=== PATIENT | male | born 1970 ===

== ENCOUNTER 2021-10-30 12:49 | Inpatient (IN) | payer OTHER ==
[2021-10-31 07:54] LABS: Basophils % (Auto) 0.7 % (0.0-1.8); Eosinophils # (Auto) 0.2 K/mm3 (0.0-0.4); Eosinophils % (Auto) 2.9 % (0.0-4.3); Hematocrit 35.2 % (35.5-45.6); Hemoglobin 11.2 gm/dl (11.8-15.2); Lymphocytes # (Auto) 1.5 K/mm3 (1.2-5.4); Lymphocytes % (Auto) 27.6 % (13.4-35.0); Mean Corpuscular HGB Conc 32 % (32-34); Mean Corpuscular Volume 76 fl (84-94); Monocytes # (Auto) 0.4 K/mm3 (0.0-0.8); Monocytes % (Auto) 7.2 % (0.0-7.3); Platelet Count 212 K/mm3 (140-440); Red Blood Count 4.66 M/mm3 (3.65-5.03)
[2021-10-31 08:15] LABS: Alanine Aminotransferase 20 units/L (7-56); Albumin 3.6 g/dL (3.9-5); BUN/Creatinine Ratio 11; Blood Urea Nitrogen 9 mg/dL (9-20); Calcium 8.9 mg/dL (8.4-10.2); Chol/HDL Ratio 2.56 %; HDL Cholesterol 51 mg/dL (40-59); Hemolysis Index 0; LDL Cholesterol,Direct 63 mg/dL (50-130)
--- NOTE | 2021-10-31 08:27 | History and Physical Report ---
GP History & Physical - History of Present Illness Date of admission: 10/30/21 Date of Examination: 10/31/21 Reason for Admission: Danger to self, Danger to others, Failure of Outpatient Treatment Chief Complaint: Psychosis History of Present Illness: The patient is a 51 year old male with history of schizophrenia and bipolar who was admitted for aggressive behavior. The patient was seen this morning. He is verbally aggressive; he is oriented x3. The patient states that he ran out of his medications. The patient requesting for pain medication and Ativan; the patient seems to be med seeking. He reports seeing his psychiatrist monthly. He denies suicidal ideation but states " I feel like shit, I need my medications." He denies hallucinations. PAST PSYCHIATRIC HISTORY Diagnoses: Bipolar, Schizophrenia Suicide attempts or Self-harm behavior: Denies Prior psychiatric hospitalizations: Yes Substance Abuse history: marijuana Previous psychiatric medications tried: Unable to recall Outpatient treatment: Yes PAST MEDICAL HISTORY: Chronic pain, Arthritis, HTN, DDD, gastric bypass, DJD of the neck, hip surgery Family Psychiatric History: None reported or documented SOCIAL HISTORY Marital Status: Single Living Arrangements: Lives with father and brother Employment Status: Disability Access to guns/weapons: Denies Education: 12th grade History of Abuse: Denies Legal History: Denies REVIEW OF SYSTEMS Constitutional: Negative for weight loss ENT: Negative for stridor Respiratory: Negative for cough or hemoptysis All other systems reviewed and are negative MENTAL STATUS EXAMINATION General Appearance and Behavior: Age appropriate, good hygiene, wearing appropriate clothes, fair eye contact, calm, cooperative and polite Cooperation: Cooperative Psychomotor Behavior: Psychomotor normal Mood: agitated Affect and affective range: congruent with stated mood Thought Process: Goal directed Thought Content: Reality oriented Speech: normal tone and pace Suicidal Ideation: Denies Homicidal Ideation: Denies Hallucinations: Denies Delusions: None elicited Impulse Control: Limited Insight and Judgment: Limited insight and judgment Memory: Limited Attention: attentive Orientation: Alert, oriented Assessment and Plan Bipolar Disorder Treatment Plan Patient admitted for inpatient psychiatric evaluation, medication adjustment and close monitoring The patient's behavior, mood, sleep and appetite will be closely monitored. Patient enrolled in individual and group therapeutic sessions and encouraged to attend. Patient provided with a safe and structured environment. Patient's physical health needs will be addressed by the Hospitalist. Hospitalist Consulted Labs including CBC, CMP, Lipid profile and Hemoglobin A1C levels ordered for baseline reference Social Assessment will be completed and the Deputy Director Of Public Works will work with patient and family to ensure a suitable and safe disposition Medication adjustment will be made as clinically indicated Continue home meds Usual Wellness Caodaism/Preservation: - Start Trazodone 50 mg po QHS & 50 mg po QHS PRN between 10 PM & 2 AM for insomnia - Start Melatonin 5 mg po QHS to promote circadian rhythm The patient agreed on the treatment plan, understood the risk, benefit, alternative treatment, potential consequence of no treatment, and gave informed consent. Estimated days: 7 Post hospital care: primary care provider, psychiatric provider Case staffed with Dr. Cruz Legal Status: Voluntary Reaction to Hospitalization: Accepting Medications and Allergies Legal Status: Voluntary Medications and Allergies Allergies Allergy/AdvReac Type Severity Reaction Status Date / Time Penicillins Allergy Unknown Verified 10/30/21 13:59 Home Medications Medication Instructions Recorded Confirmed Last Taken Type Gabapentin 100 mg PO TID 10/31/21 10/31/21 Unknown History Mirtazapine [Remeron] 45 mg PO HS 10/31/21 10/31/21 Unknown History OLANZapine [Zyprexa] 20 mg PO HS 10/31/21 10/31/21 Unknown History Pantoprazole [Protonix TAB] 40 mg PO DAILY 10/31/21 10/31/21 Unknown History busPIRone [Buspar] 10 mg PO TID 10/31/21 10/31/21 Unknown History hydrOXYzine PAMOATE [Vistaril] 25 mg PO BID PRN 10/31/21 10/31/21 Unknown History hydroCHLOROthiazide [HCTZ] 12.5 mg PO DAILY 10/31/21 10/31/21 Unknown History lamoTRIgine [Lamictal] 50 mg PO DAILY 10/31/21 10/31/21 Unknown History Results - Results Labs/Vitals: Laboratory Last Values WBC 5.3 K/mm3 (4.5-11.0) 10/31/21 07:26 RBC 4.66 M/mm3 (3.65-5.03) 10/31/21 07:26 Hgb 11.2 gm/dl (11.8-15.2) L 10/31/21 07:26 Hct 35.2 % (35.5-45.6) L 10/31/21 07:26 MCV 76 fl (84-94) L 10/31/21 07:26 MCH 24 pg (28-32) L 10/31/21 07:26 MCHC 32 % (32-34) 10/31/21 07:26 RDW 18.0 % (13.2-15.2) H 10/31/21 07:26 Plt Count 212 K/mm3 (140-440) 10/31/21 07:26 Lymph % (Auto) 27.6 % (13.4-35.0) 10/31/21 07:26 [place] % (Auto) 7.2 % (0.0-7.3) 10/31/21 07:26 Eos % (Auto) 2.9 % (0.0-4.3) 10/31/21 07:26 Baso % (Auto) 0.7 % (0.0-1.8) 10/31/21 07:26 Lymph # (Auto) 1.5 K/mm3 (1.2-5.4) 10/31/21 07:26 [place] # (Auto) 0.4 K/mm3 (0.0-0.8) 10/31/21 07:26 Eos # (Auto) 0.2 K/mm3 (0.0-0.4) 10/31/21 07:26 Baso # (Auto) 0.0 K/mm3 (0.0-0.1) 10/31/21 07:26 Seg Neutrophils % 61.6 % (40.0-70.0) 10/31/21 07:26 Seg Neutrophils # 3.2 K/mm3 (1.8-7.7) 10/31/21 07:26 Sodium 139 mmol/L (137-145) 10/31/21 07:26 Potassium 4.1 mmol/L (3.6-5.0) 10/31/21 07:26 Chloride 103.9 mmol/L (98-107) 10/31/21 07:26 Carbon Dioxide 26 mmol/L (22-30) 10/31/21 07:26 Anion Gap 13 mmol/L 10/31/21 07:26 BUN 9 mg/dL (9-20) 10/31/21 07:26 Creatinine 0.8 mg/dL (0.8-1.3) 10/31/21 07:26 Estimated GFR > 60 ml/min 10/31/21 07:26 BUN/Creatinine Ratio 11 % 10/31/21 07:26 Glucose 91 mg/dL (75-100) 10/31/21 07:26 Hemoglobin A1c 6.4 % (4-6) H 10/31/21 07:26 Calcium 8.9 mg/dL (8.4-10.2) 10/31/21 07:26 Total Bilirubin 0.40 mg/dL (0.1-1.2) 10/31/21 07:26 AST 36 units/L (5-40) 10/31/21 07:26 ALT 20 units/L (7-56) 10/31/21 07:26 Alkaline Phosphatase 93 units/L (35-129) 10/31/21 07:26 Total Protein 6.8 g/dL (6.3-8.2) 10/31/21 07:26 Albumin 3.6 g/dL (3.9-5) L 10/31/21 07:26 Albumin/Globulin Ratio 1.1 % 10/31/21 07:26 Triglycerides 100 mg/dL (2-149) 10/31/21 07:26 Cholesterol 131 mg/dL (50-199) 10/31/21 07:26 LDL Cholesterol Direct 63 mg/dL (50-130) 10/31/21 07:26 HDL Cholesterol 51 mg/dL (40-59) 10/31/21 07:26 Cholesterol/HDL Ratio 2.56 % 10/31/21 07:26 TSH 1.510 mlU/mL (0.270-4.200) 10/31/21 07:26 Last Vital Signs Temp 98.3 F 10/30/21 22:00 Pulse 82 10/30/21 22:00 Resp 18 10/30/21 22:00 BP 129/85 10/30/21 22:00 Pulse Ox 95 10/30/21 22:00 Physical Examination - Constitutional Vitals: Vital Signs Temp Pulse Resp BP Pulse Ox 98.3 F 82 18 129/85 95 10/30/21 22:00 10/30/21 22:00 10/30/21 22:00 10/30/21 22:00 10/30/21 22:00 Temperature -Last 24 Hours Temperature 98.3 F Mental Status Exam - Vital signs Last Vital Signs Temp 98.3 F 10/30/21 22:00 Pulse 82 10/30/21 22:00 Resp 18 10/30/21 22:00 BP 129/85 10/30/21 22:00 Pulse Ox 95 10/30/21 22:00 Physician Certification - Certification Statement Physician Certification Statement: This is an acknowledgement statement that AZEB SULTANA JR. is a 51 year old M who requires inpatient psychiatric admission for treatment which could reasonably be expected to improve the patient's condition for Estimated period of time patient will need to remain in the hospital: [ ] Plan for post-hospital care: [ ]
[2021-10-31] MEDS: lamoTRIgine 25 MG TAB PO SCH (09:28)
[2021-10-31] MEDS: hydroCHLOROthiazide 12.5 MG CAP PO SCH (09:28)
[2021-10-31] MEDS: hydrOXYzine PAMOATE 25 MG CAP PO PRN ×2 (09:29→21:48)
[2021-10-31] MEDS: GABAPENTIN 100 MG CAP PO SCH ×3 (09:29→21:48)
[2021-10-31] MEDS: PANTOPRAZOLE 40 MG TAB PO SCH (09:29)
[2021-10-31] MEDS: busPIRone 10 MG TAB PO SCH ×2 (14:32→21:50)
--- NOTE | 2021-10-31 16:25 | Consultation ---
<ALONDRA CHAVEZ - Last Filed: 11/01/21 09:03> Medications and Allergies Allergies Allergy/AdvReac Type Severity Reaction Status Date / Time Penicillins Allergy Unknown Verified 10/30/21 13:59 Home Medications Medication Instructions Recorded Confirmed Last Taken Type Gabapentin 100 mg PO TID 10/31/21 10/31/21 Unknown History Mirtazapine [Remeron] 45 mg PO 10/31/21 10/31/21 Unknown History OLANZapine [Zyprexa] 20 mg PO 10/31/21 10/31/21 Unknown History Pantoprazole [Protonix TAB] 40 mg PO DAILY 10/31/21 10/31/21 Unknown History busPIRone [Buspar] 10 mg PO TID 10/31/21 10/31/21 Unknown History hydrOXYzine PAMOATE [Vistaril] 25 mg PO BID PRN 10/31/21 10/31/21 Unknown History hydroCHLOROthiazide [HCTZ] 12.5 mg PO DAILY 10/31/21 10/31/21 Unknown History lamoTRIgine [Lamictal] 50 mg PO DAILY 10/31/21 10/31/21 Unknown History Active Meds: Active Medications Acetaminophen (Acetaminophen 325 Mg Tab) 650 mg PO Q6H PRN PRN Reason: Pain, Mild (1-3) Last Admin: 10/31/21 23:26 Dose: 650 mg Buspirone HCl (Buspirone 10 Mg Tab) 10 mg PO TID [facility] Last Admin: 10/31/21 21:50 Dose: 10 mg Gabapentin (Gabapentin 100 Mg Cap) 100 mg PO TID [facility] Last Admin: 10/31/21 21:48 Dose: 100 mg Hydrochlorothiazide (Hydrochlorothiazide 12.5 Mg Cap) 12.5 mg PO DAILY [facility] Last Admin: 10/31/21 09:28 Dose: Not Given Hydroxyzine Pamoate (Hydroxyzine Pamoate 25 Mg Cap) 25 mg PO BID PRN PRN Reason: Anxiety Last Admin: 10/31/21 21:48 Dose: 25 mg Lamotrigine (Lamotrigine 25 Mg Tab) 50 mg PO DAILY [facility] Last Admin: 10/31/21 09:28 Dose: 50 mg Mirtazapine (Mirtazapine 15 Mg Tab) 45 mg PO [facility] Last Admin: 05/14/22 21:50 Dose: 45 mg Olanzapine (Olanzapine 10 Mg Tab) 20 mg PO QHS [facility] Last Admin: 10/31/21 21:49 Dose: 20 mg Pantoprazole Sodium (Pantoprazole 40 Mg Tab) 40 mg PO DAILY [facility] Last Admin: 10/31/21 09:29 Dose: 40 mg Exam - Constitutional Vitals: Temp Pulse Resp BP Pulse Ox 97.6 F 75 18 125/81 100 11/01/21 04:17 11/01/21 04:17 11/01/21 04:17 11/01/21 04:17 11/01/21 04:17 Results - Labs CBC & Chem 7: 10/31/21 07:26 10/31/21 07:26 <EVETTE ARTHUR - Last Filed: 11/01/21 20:04> History of Present Illness - Reason for Consult Consult date: 10/30/21 Medical management Requesting physician: JESSE RAZA - History of Present Illness 51 YO Male with HTN, OA, Schizophrenia, Bipolar Disorder admitted to [facility] for psychiatric stabilization. Consult placed by Dr. Raza for medical management. Patient seen and evaluated in the patient room. Pt denies fever, c hills, chest pain, palpitation, productive cough, skin rash, recent contact, known exposure to COVID-19. Patient resting comfortably. No reported nursing events. Patient denies. Past History Past Medical History: arthritis, hypertension Past Surgical History: total hip replacement, bowel surgery Social history: single. denies: smoking, alcohol abuse, prescription drug abuse Family history: hypertension Medications and Allergies Active Meds: Active Medications Buspirone HCl (Buspirone 10 Mg Tab) 10 mg PO TID [facility] Last Admin: 10/31/21 14:32 Dose: Not Given Gabapentin (Gabapentin 100 Mg Cap) 100 mg PO TID [facility] Last Admin: 10/31/21 13:05 Dose: 100 mg Hydrochlorothiazide (Hydrochlorothiazide 12.5 Mg Cap) 12.5 mg PO DAILY [facility] Last Admin: 10/31/21 09:28 Dose: Not Given Hydroxyzine Pamoate (Hydroxyzine Pamoate 25 Mg Cap) 25 mg PO BID PRN PRN Reason: Anxiety Last Admin: 10/31/21 09:29 Dose: 25 mg Lamotrigine (Lamotrigine 25 Mg Tab) 50 mg PO DAILY [facility] Last Admin: 10/31/21 09:28 Dose: 50 mg Mirtazapine (Mirtazapine 15 Mg Tab) 45 mg PO HS [facility] Olanzapine (Olanzapine 10 Mg Tab) 20 mg PO QHS [facility] Pantoprazole Sodium (Pantoprazole 40 Mg Tab) 40 mg PO DAILY [facility] Last Admin: 10/31/21 09:29 Dose: 40 mg Review of Systems Constitutional: no weight loss, no weight gain, no fever, no night sweats Ears, nose, mouth and throat: no ear pain, no tinnitis, no nose pain, no nasal congestion, no nasal discharge Cardiovascular: no chest pain, no orthopnea, no edema, no syncope Respiratory: no cough, no hemoptysis, no shortness of breath Gastrointestinal: no abdominal pain, no nausea, no vomiting, no diarrhea, no constipation Genitourinary Male: no dysuria, no hematuria, no discharge, no urinary frequency, no urinary hesitancy, no nocturia, no incontinence Rectal: no pain, no incontinence, no bleeding Musculoskeletal: no neck stiffness, no shooting arm pain, no arm numbness/tingling, no shooting leg pain, no leg numbness/tingling Integumentary: no rash, no pruritis, no redness, no sores, no wounds Neurological: no head injury, no paralysis, no weakness, no parathesias, no tingling, no seizures, no syncope, no tremors Psychiatric: anxiety, irritability, sadness/tearfullness Endocrine: no cold intolerance, no heat intolerance, no polyphagia, no polydipsia, no polyuria, no nocturia Hematologic/Lymphatic: no easy bruising, no easy bleeding Allergic/Immunologic: no urticaria, no allergic rhinitis, no persistent infections Exam - Constitutional Vitals: Temp Pulse Resp BP Pulse Ox 98.2 F 97 H 18 108/72 96 10/31/21 09:20 10/31/21 09:20 10/31/21 09:20 10/31/21 09:20 10/31/21 09:20 General appearance: Present: no acute distress, well-nourished - EENT Eyes: Present: PERRL ENT: hearing intact, clear oral mucosa - Neck Neck: Present: supple, normal ROM - Respiratory Respiratory effort: normal Respiratory: bilateral: CTA - Cardiovascular Heart Sounds: Present: S1 & S2. Absent: rub, click - Extremities Extremities: pulses symmetrical, No edema Peripheral Pulses: within normal limits - Abdominal General gastrointestinal: Present: soft, non-tender, non-distended, normal bowel sounds Male genitourinary: Present: normal - Integumentary Integumentary: Present: clear, warm, dry - Musculoskeletal Musculoskeletal: gait normal, strength equal bilaterally - Psychiatric Psychiatric: no appropriate mood/affect, no intact judgment & insight, agitated - Neurologic Neurologic: CNII-XII intact, moves all extremities Results - Labs CBC & Chem 7: 10/31/21 07:26 10/31/21 07:26 Labs: Abnormal lab results 10/31/21 10/31/21 10/31/21 Range/Units 07:26 07: 07:26 Hgb 11.2 L (11.8-15.2) gm/dl Hct 35.2 L (35.5-45.6) % MCV 76 L (84-94) fl MCH 24 L (28-32) pg RDW 18.0 H (13.2-15.2) % Hemoglobin A1c 6.4 H (4-6) % Albumin 3.6 L (3.9-5) g/dL Assessment and Plan - Patient Problems (1) Hypertension Current Visit: Yes Status: Acute Qualifiers: Hypertension type: primary hypertension Qualified Code(s): I10 - Essential (primary) hypertension Plan to address problem: Monitor blood pressure every shift, continue medical management. (2) Osteoarthritis Current Visit: Yes Status: Acute Plan to address problem: Pain control as clinically indicated, supportive care. (3) Schizophrenia Current Visit: Yes Status: Acute Qualifiers: Schizophrenia type: unspecified Qualified Code(s): F20.9 - Schizophrenia, unspecified Plan to address problem: Continue medical management, supportive care, behavior change counseling, cognitive behavioral therapy. (4) Bipolar disorder Current Visit: Yes Status: Acute Qualifiers: Current episode severity: unspecified Plan to address problem: Continue medical management, supportive care. (5) Advance care planning Current Visit: Yes Status: Acute Plan to address problem: Disease education conducted, care plan discussed, diagnoses discussed, prognosis discussed, patient is full code. Patient knowledges understanding and agreement with care plan, +30 minutes.
[2021-10-31] MEDS: ACETAMINOPHEN 325 MG TAB PO PRN ×2 (16:30→23:26)
[2021-10-31] MEDS: MIRTAZAPINE 15 MG TAB PO SCH (21:50)
[2021-10-31] MEDS ORDERED: NON-FORMULARY EACH (Olanzapine [Zyprexa] 20 MG Tablet) PO SCH (22:00)
--- NOTE | 2021-11-01 09:25 | Progress Note ---
Subjective Date of service: 11/01/21 Subjective Comment: 11/01: The patient was seen today.He reports doing well. The patient presents with appropriate affect, he denies depression. He denies any current suicidal/homicidal ideation and denies hallucinations. No changes made today. REVIEW OF SYSTEMS Constitutional: Negative for weight loss ENT: Negative for stridor Respiratory: Negative for cough or hemoptysis All other systems reviewed and are negative MENTAL STATUS EXAMINATION General Appearance and Behavior: Age appropriate, good hygiene, wearing appropriate clothes, fair eye contact, calm, cooperative and polite Cooperation: Cooperative Psychomotor Behavior: Psychomotor normal Mood: "Ok" Affect and affective range: congruent with stated mood Thought Process: Goal directed Thought Content: Reality oriented Speech: normal tone and pace Suicidal Ideation: Denies Homicidal Ideation: Denies Hallucinations: Denies Delusions: None elicited Impulse Control: Limited Insight and Judgment: Limited insight and judgment Memory: Limited Attention: attentive Orientation: Alert, oriented Assessment and Plan Bipolar Disorder Treatment Plan Patient admitted for inpatient psychiatric evaluation, medication adjustment and close monitoring The patient's behavior, mood, sleep and appetite will be closely monitored. Patient enrolled in individual and group therapeutic sessions and encouraged to attend. Patient provided with a safe and structured environment. Patient's physical health needs will be addressed by the Hospitalist. Hospitalist Consulted Labs including CBC, CMP, Lipid profile and Hemoglobin A1C levels ordered for baseline reference Social Assessment will be completed and the International Guest Coordinator will work with patient and family to ensure a suitable and safe disposition Medication adjustment will be made as clinically indicated Continue home meds Usual Wellness Congregation/Preservation: - Start Trazodone 50 mg po QHS & 50 mg po QHS PRN between 10 PM & 2 AM for insomnia - Start Melatonin 5 mg po QHS to promote circadian rhythm The patient agreed on the treatment plan, understood the risk, benefit, alternative treatment, potential consequence of no treatment, and gave informed consent. Estimated days: 7 Post hospital care: primary care provider, psychiatric provider Case staffed with Dr. Cruz Legal Status: Voluntary Reaction to Hospitalization: Accepting Medications and Allergies Legal Status: Voluntary Medications and Allergies Allergies Allergy/AdvReac Type Severity Reaction Status Date / Time Penicillins Allergy Unknown Verified 10/30/21 13:59 Home Medications Medication Instructions Recorded Confirmed Last Taken Type Gabapentin 100 mg PO TID 10/31/21 10/31/21 Unknown History Mirtazapine [Remeron] 45 mg PO HS 10/31/21 10/31/21 Unknown History OLANZapine [Zyprexa] 20 mg PO HS 10/31/21 10/31/21 Unknown History Pantoprazole [Protonix TAB] 40 mg PO DAILY 10/31/21 10/31/21 Unknown History busPIRone [Buspar] 10 mg PO TID 10/31/21 10/31/21 Unknown History hydrOXYzine PAMOATE [Vistaril] 25 mg PO BID PRN 10/31/21 10/31/21 Unknown History hydroCHLOROthiazide [HCTZ] 12.5 mg PO DAILY 10/31/21 10/31/21 Unknown History lamoTRIgine [Lamictal] 50 mg PO DAILY 10/31/21 10/31/21 Unknown History Active Meds: Active Medications Acetaminophen (Acetaminophen 325 Mg Tab) 650 mg PO Q6H PRN PRN Reason: Pain, Mild (1-3) Last Admin: 10/31/21 23:26 Dose: 650 mg Buspirone HCl (Buspirone 10 Mg Tab) 10 mg PO TID [facility] Last Admin: 10/31/21 21:50 Dose: 10 mg Gabapentin (Gabapentin 100 Mg Cap) 100 mg PO TID [facility] Last Admin: 10/31/21 21:48 Dose: 100 mg Hydrochlorothiazide (Hydrochlorothiazide 12.5 Mg Cap) 12.5 mg PO DAILY [facility] Last Admin: 10/31/21 09:28 Dose: Not Given Hydroxyzine Pamoate (Hydroxyzine Pamoate 25 Mg Cap) 25 mg PO BID PRN PRN Reason: Anxiety Last Admin: 10/31/21 21:48 Dose: 25 mg Lamotrigine (Lamotrigine 25 Mg Tab) 50 mg PO DAILY [facility] Last Admin: 10/31/21 09:28 Dose: 50 mg Mirtazapine (Mirtazapine 15 Mg Tab) 45 mg PO HS [facility] Last Admin: 10/31/21 21:50 Dose: 45 mg Olanzapine (Olanzapine 10 Mg Tab) 20 mg PO QHS [facility] Last Admin: 10/31/21 21:49 Dose: 20 mg Pantoprazole Sodium (Pantoprazole 40 Mg Tab) 40 mg PO DAILY [facility] Last Admin: 10/31/21 09:29 Dose: 40 mg Results - Results Labs/Vitals: Laboratory Last Values WBC 5.3 K/mm3 (4.5-11.0) 10/31/21 07: RBC 4.66 M/mm3 (3.65-5.03) 10/31/21 07: Hgb 11.2 gm/dl (11.8-15.2) L 10/31/21 07: Hct 35.2 % (35.5-45.6) L 10/31/21 07: MCV 76 fl (84-94) L 10/31/21 07: MCH 24 pg (28-32) L 10/31/21 07: MCHC 32 % (32-34) 10/31/21 07: RDW 18.0 % (13.2-15.2) H 10/31/21: Plt Count 212 K/mm3 (140-440) 10/31/21 07: Lymph % (Auto) 27.6 % (13.4-35.0) 10/31/21 07: [place] % (Auto) 7.2 % (0.0-7.3) 10/31/21 07: Eos % (Auto) 2.9 % (0.0-4.3) 10/31/21 07: Baso % (Auto) 0.7 % (0.0-1.8) 10/31/21 07: Lymph # (Auto) 1.5 K/mm3 (1.2-5.4) 10/31/21 07: [place] # (Auto) 0.4 K/mm3 (0.0-0.8) 10/31/21 07: Eos # (Auto) 0.2 K/mm3 (0.0-0.4) 10/31/21 07: Baso # (Auto) 0.0 K/mm3 (0.0-0.1) 10/31/21 07: Seg Neutrophils % 61.6 % (40.0-70.0) 10/31/21: Seg Neutrophils # 3.2 K/mm3 (1.8-7.7) 10/31/21 07:26 Sodium 139 mmol/L (137-145) 10/31/21 07:26 Potassium 4.1 mmol/L (3.6-5.0) 10/31/21 07: Chloride 103.9 mmol/L (98-107) 10/31/21 07:26 Carbon Dioxide 26 mmol/L (22-30) 10/31/21 07:26 Anion Gap 13 mmol/L 10/31/21 07:26 BUN 9 mg/dL (9-20) 10/31/21 07:26 Creatinine 0.8 mg/dL (0.8-1.3) 10/31/21 07:26 Estimated GFR > 60 ml/min 10/31/21 07:26 BUN/Creatinine Ratio 11 % 10/31/21 07:26 Glucose 91 mg/dL (75-100) 10/31/21 07:26 Hemoglobin A1c 6.4 % (4-6) H 10/31/21 07:26 Calcium 8.9 mg/dL (8.4-10.2) 10/31/21 07:26 Total Bilirubin 0.40 mg/dL (0.1-1.2) 10/31/21 07:26 AST 36 units/L (5-40) 10/31/21 07:26 ALT 20 units/L (7-56) 10/31/21 07:26 Alkaline Phosphatase 93 units/L (35-129) 10/31/21 07:26 Total Protein 6.8 g/dL (6.3-8.2) 10/31/21 07:26 Albumin 3.6 g/dL (3.9-5) L 10/31/21 07:26 Albumin/Globulin Ratio 1.1 % 10/31/21 07:26 Triglycerides 100 mg/dL (2-149) 10/31/21 07:26 Cholesterol 131 mg/dL (50-199) 10/31/21 07:26 LDL Cholesterol Direct 63 mg/dL (50-130) 10/31/21 07:26 HDL Cholesterol 51 mg/dL (40-59) 10/31/21 07:26 Cholesterol/HDL Ratio 2.56 % 10/31/21 07:26 TSH 1.510 mlU/mL (0.270-4.200) 10/31/21 07:26 Last Vital Signs Temp 97.6 F 11/01/21 04:17 Pulse 75 11/01/21 04:17 Resp 18 11/01/21 04:17 BP 125/81 11/01/21 04:17 Pulse Ox 100 11/01/21 04:17
[2021-11-01] MEDS: hydroCHLOROthiazide 12.5 MG CAP PO SCH (11:53)
[2021-11-01] MEDS: busPIRone 10 MG TAB PO SCH ×3 (11:53→22:01)
[2021-11-01] MEDS: lamoTRIgine 25 MG TAB PO SCH (11:53)
[2021-11-01] MEDS: GABAPENTIN 100 MG CAP PO SCH ×3 (11:53→22:02)
[2021-11-01] MEDS: PANTOPRAZOLE 40 MG TAB PO SCH (11:54)
[2021-11-01] MEDS: ACETAMINOPHEN 325 MG TAB PO PRN (12:45)
--- NOTE | 2021-11-01 20:06 | Progress Note ---
Assessment and Plan - Patient Problems (1) Hypertension Current Visit: Yes Status: Acute Qualifiers: Hypertension type: primary hypertension Qualified Code(s): I10 - Essential (primary) hypertension Plan to address problem: Monitor blood pressure every shift, continue medical management. (2) Osteoarthritis Current Visit: Yes Status: Acute Plan to address problem: Pain control as clinically indicated, supportive care. (3) Schizophrenia Current Visit: Yes Status: Acute Qualifiers: Schizophrenia type: unspecified Qualified Code(s): F20.9 - Schizophrenia, unspecified Plan to address problem: Continue medical management, supportive care, behavior change counseling, cognitive behavioral therapy. (4) Bipolar disorder Current Visit: Yes Status: Acute Qualifiers: Current episode severity: unspecified Plan to address problem: Continue medical management, supportive care. (5) Advance care planning Current Visit: Yes Status: Acute Plan to address problem: Disease education conducted, care plan discussed, diagnoses discussed, prognosis discussed, patient is full code. Patient knowledges understanding and agreement with care plan, +30 minutes. History Interval history: 51 YO Male with HTN, OA, Schizophrenia, Bipolar Disorder admitted to [facility] unit for psychiatric stabilization. Consult placed by Dr. Li for medical management. Patient seen and evaluated in the patient room. Patient resting comfortably. No reported nursing events. Patient remains at baseline level of cognition and function. Hospitalist Physical - Constitutional Vitals: Temp Pulse Resp BP Pulse Ox 97.7 F 97 H 18 108/79 97 11/01/21 10:00 11/01/21 10:00 11/01/21 08:22 11/01/21 10:00 11/01/21 08:22 General appearance: Present: no acute distress, well-nourished - EENT Eyes: Present: PERRL ENT: hearing intact - Neck Neck: Present: supple - Respiratory Respiratory effort: normal Respiratory: bilateral: CTA - Cardiovascular Rhythm: regular - Extremities Extremities: no ischemia Peripheral Pulses: within normal limits - Abdominal General gastrointestinal: soft, non-tender, non-distended - Integumentary Integumentary: Present: clear, dry - Psychiatric Psychiatric: cooperative - Neurologic Neurologic: CNII-XII intact Results - Labs CBC & Chem 7: 10/31/21 07:26 10/31/21 07:26 Labs: Laboratory Last Values WBC 5.3 K/mm3 (4.5-11.0) 10/31/21 07: RBC 4.66 M/mm3 (3.65-5.03) 10/31/21 07:26 Hgb 11.2 gm/dl (11.8-15.2) L 10/31/21 07:26 Hct 35.2 % (35.5-45.6) L 10/31/21 07:26 MCV 76 fl (84-94) L 10/31/21 07: MCH 24 pg (28-32) L 10/31/21 07: MCHC 32 % (32-34) 10/31/21 07: RDW 18.0 % (13.2-15.2) H 10/31/21 07:26 Plt Count 212 K/mm3 (140-440) 10/31/21 07:26 Lymph % (Auto) 27.6 % (13.4-35.0) 10/31/21 07:26 [place] % (Auto) 7.2 % (0.0-7.3) 10/31/21 07:26 Eos % (Auto) 2.9 % (0.0-4.3) 10/31/21 07:26 Baso % (Auto) 0.7 % (0.0-1.8) 10/31/21 07:26 Lymph # (Auto) 1.5 K/mm3 (1.2-5.4) 10/31/21 07:26 [place] # (Auto) 0.4 K/mm3 (0.0-0.8) 10/31/21 07:26 Eos # (Auto) 0.2 K/mm3 (0.0-0.4) 10/31/21 07:26 Baso # (Auto) 0.0 K/mm3 (0.0-0.1) 10/31/21 07:26 Seg Neutrophils % 61.6 % (40.0-70.0) 10/31/21 07: Seg Neutrophils # 3.2 K/mm3 (1.8-7.7) 10/31/21 07:26 Sodium 139 mmol/L (137-145) 10/31/21 07:26 Potassium 4.1 mmol/L (3.6-5.0) 10/31/21 07:26 Chloride 103.9 mmol/L (98-107) 10/31/21 07:26 Carbon Dioxide 26 mmol/L (22-30) 10/31/21 07:26 Anion Gap 13 mmol/L 10/31/21 07:26 BUN 9 mg/dL (9-20) 10/31/21 07:26 Creatinine 0.8 mg/dL (0.8-1.3) 10/31/21 07:26 Estimated GFR > 60 ml/min 10/31/21 07:26 BUN/Creatinine Ratio 11 % 10/31/21 07:26 Glucose 91 mg/dL (75-100) 10/31/21 07:26 Hemoglobin A1c 6.4 % (4-6) H 10/31/21 07:26 Calcium 8.9 mg/dL (8.4-10.2) 10/31/21 07:26 Total Bilirubin 0.40 mg/dL (0.1-1.2) 10/31/21 07:26 AST 36 units/L (5-40) 10/31/21 07:26 ALT 20 units/L (7-56) 10/31/21 07:26 Alkaline Phosphatase 93 units/L (35-129) 10/31/21 07:26 Total Protein 6.8 g/dL (6.3-8.2) 10/31/21 07:26 Albumin 3.6 g/dL (3.9-5) L 10/31/21 07:26 Albumin/Globulin Ratio 1.1 % 10/31/21 07:26 Triglycerides 100 mg/dL (2-149) 10/31/21 07:26 Cholesterol 131 mg/dL (50-199) 10/31/21 07:26 LDL Cholesterol Direct 63 mg/dL (50-130) 10/31/21 07:26 HDL Cholesterol 51 mg/dL (40-59) 10/31/21 07:26 Cholesterol/HDL Ratio 2.56 % 10/31/21 07:26 TSH 1.510 mlU/mL (0.270-4.200) 10/31/21 07:26 Frias/IV: Voiding Method Toilet Active Medications - Current Medications Current Medications: Generic Name Dose Route Start Last Admin Trade Name Freq PRN Reason Stop Dose Admin Acetaminophen 650 mg 10/31/21 16:26 11/01/21 12:45 Acetaminophen 325 Mg Tab PO 650 mg Q6H PRN Administration Pain, Mild (1-3) Buspirone HCl 10 mg 10/31/21 14:00 11/01/21 19:03 Buspirone 10 Mg Tab PO 10 mg TID [place] Administration Gabapentin 100 mg 10/31/21 09:00 11/01/21 19:03 Gabapentin 100 Mg Cap PO 100 mg TID [place] Administration Hydrochlorothiazide 12.5 mg 10/31/21 10:00 11/01/21 11:53 Hydrochlorothiazide 12.5 Mg Cap PO 12.5 mg DAILY [place] Administration Hydroxyzine Pamoate 25 mg 10/31/21 08:26 10/31/21 21:48 Hydroxyzine Pamoate 25 Mg Cap PO 25 mg BID PRN Administration Anxiety Lamotrigine 50 mg 10/31/21 10:00 11/01/21 11:53 Lamotrigine 25 Mg Tab PO 50 mg DAILY [place] Administration Mirtazapine 45 mg 10/31/21 22:00 10/31/21 21:50 Mirtazapine 15 Mg Tab PO 45 mg HS [place] Administration Olanzapine 20 mg 10/31/21 22:00 10/31/21 21:49 Olanzapine 10 Mg Tab PO 20 mg QHS [place] Administration Pantoprazole Sodium 40 mg 10/31/21 10:00 11/01/21 11:54 Pantoprazole 40 Mg Tab PO 40 mg DAILY [facility] Administration
--- NOTE | 2021-11-01 20:06 | Progress Note ---
Assessment and Plan - Patient Problems (1) Hypertension Current Visit: Yes Status: Acute Qualifiers: Hypertension type: primary hypertension Qualified Code(s): I10 - Essential (primary) hypertension Plan to address problem: Monitor blood pressure every shift, continue medical management. (2) Osteoarthritis Current Visit: Yes Status: Acute Plan to address problem: Pain control as clinically indicated, supportive care. (3) Schizophrenia Current Visit: Yes Status: Acute Qualifiers: Schizophrenia type: unspecified Qualified Code(s): F20.9 - Schizophrenia, unspecified Plan to address problem: Continue medical management, supportive care, behavior change counseling, cognitive behavioral therapy. (4) Bipolar disorder Current Visit: Yes Status: Acute Qualifiers: Current episode severity: unspecified Plan to address problem: Continue medical management, supportive care. (5) Advance care planning Current Visit: Yes Status: Acute Plan to address problem: Disease education conducted, care plan discussed, diagnoses discussed, prognosis discussed, patient is full code. Patient knowledges understanding and agreement with care plan, +30 minutes. History Interval history: 51 YO Male with HTN, OA, Schizophrenia, Bipolar Disorder admitted to [facility] unit for psychiatric stabilization. Consult placed by Dr. Li for medical management. Patient seen and evaluated in the patient room. Patient resting comfortably. No reported nursing events. Patient remains at baseline level of cognition and function. Hospitalist Physical - Constitutional Vitals: Temp Pulse Resp BP Pulse Ox 97.7 F 97 H 18 108/79 97 11/01/21 10:00 11/01/21 10:00 11/01/21 08:22 11/01/21 10:00 11/01/21 08:22 General appearance: Present: no acute distress, well-nourished - EENT Eyes: Present: PERRL ENT: hearing intact - Neck Neck: Present: supple - Respiratory Respiratory effort: normal Respiratory: bilateral: CTA - Cardiovascular Rhythm: regular Heart Sounds: Present: S1 & S2 - Extremities Extremities: no ischemia Peripheral Pulses: within normal limits - Abdominal General gastrointestinal: soft, non-tender, non-distended - Integumentary Integumentary: Present: clear, dry - Psychiatric Psychiatric: cooperative - Neurologic Neurologic: CNII-XII intact Results - Labs CBC & Chem 7: 10/31/21 07:26 10/31/21 07:26 Labs: Laboratory Last Values WBC 5.3 K/mm3 (4.5-11.0) 10/31/21 07: RBC 4.66 M/mm3 (3.65-5.03) 10/31/21 07: Hgb 11.2 gm/dl (11.8-15.2) L 10/31/21 07:26 Hct 35.2 % (35.5-45.6) L 10/31/21 07:26 MCV 76 fl (84-94) L 10/31/21 07: MCH 24 pg (28-32) L 10/31/21 07: MCHC 32 % (32-34) 10/31/21 07: RDW 18.0 % (13.2-15.2) H 10/31/21 07: Plt Count 212 K/mm3 (140-440) 10/31/21 07:26 Lymph % (Auto) 27.6 % (13.4-35.0) 10/31/21 07: [place] % (Auto) 7.2 % (0.0-7.3) 10/31/21 07: Eos % (Auto) 2.9 % (0.0-4.3) 10/31/21 07: Baso % (Auto) 0.7 % (0.0-1.8) 10/31/21 07: Lymph # (Auto) 1.5 K/mm3 (1.2-5.4) 10/31/21 07: [place] # (Auto) 0.4 K/mm3 (0.0-0.8) 10/31/21 07: Eos # (Auto) 0.2 K/mm3 (0.0-0.4) 10/31/21 07: Baso # (Auto) 0.0 K/mm3 (0.0-0.1) 10/31/21 07: Seg Neutrophils % 61.6 % (40.0-70.0) 10/31/21 07: Seg Neutrophils # 3.2 K/mm3 (1.8-7.7) 10/31/21 07:26 Sodium 139 mmol/L (137-145) 10/31/21 07:26 Potassium 4.1 mmol/L (3.6-5.0) 10/31/21 07: Chloride 103.9 mmol/L (98-107) 10/31/21 07:26 Carbon Dioxide 26 mmol/L (22-30) 10/31/21 07:26 Anion Gap 13 mmol/L 10/31/21 07:26 BUN 9 mg/dL (9-20) 10/31/21 07:26 Creatinine 0.8 mg/dL (0.8-1.3) 10/31/21 07:26 Estimated GFR > 60 ml/min 10/31/21 07:26 BUN/Creatinine Ratio 11 % 10/31/21 07:26 Glucose 91 mg/dL (75-100) 10/31/21 07:26 Hemoglobin A1c 6.4 % (4-6) H 10/31/21 07:26 Calcium 8.9 mg/dL (8.4-10.2) 10/31/21 07:26 Total Bilirubin 0.40 mg/dL (0.1-1.2) 10/31/21 07:26 AST 36 units/L (5-40) 10/31/21 07:26 ALT 20 units/L (7-56) 10/31/21 07:26 Alkaline Phosphatase 93 units/L (35-129) 10/31/21 07:26 Total Protein 6.8 g/dL (6.3-8.2) 10/31/21 07:26 Albumin 3.6 g/dL (3.9-5) L 10/31/21 07:26 Albumin/Globulin Ratio 1.1 % 10/31/21 07:26 Triglycerides 100 mg/dL (2-149) 10/31/21 07:26 Cholesterol 131 mg/dL (50-199) 10/31/21 07:26 LDL Cholesterol Direct 63 mg/dL (50-130) 10/31/21 07:26 HDL Cholesterol 51 mg/dL (40-59) 10/31/21 07:26 Cholesterol/HDL Ratio 2.56 % 10/31/21 07:26 TSH 1.510 mlU/mL (0.270-4.200) 10/31/21 07:26 Frias/IV: Voiding Method Toilet Active Medications - Current Medications Current Medications: Generic Name Dose Route Start Last Admin Trade Name Freq PRN Reason Stop Dose Admin Acetaminophen 650 mg 10/31/21 16:26 11/01/21 12:45 Acetaminophen 325 Mg Tab PO 650 mg Q6H PRN Administration Pain, Mild (1-3) Buspirone HCl 10 mg 10/31/21 14:00 11/01/21 19:03 Buspirone 10 Mg Tab PO 10 mg TID [place] Administration Gabapentin 100 mg 10/31/21 09:00 11/01/21 19:03 Gabapentin 100 Mg Cap PO 100 mg TID [place] Administration Hydrochlorothiazide 12.5 mg 10/31/21 10:00 11/01/21 11:53 Hydrochlorothiazide 12.5 Mg Cap PO 12.5 mg DAILY [place] Administration Hydroxyzine Pamoate 25 mg 10/31/21 08:26 10/31/21 21:48 Hydroxyzine Pamoate 25 Mg Cap PO 25 mg BID PRN Administration Anxiety Lamotrigine 50 mg 10/31/21 10:00 11/01/21 11:53 Lamotrigine 25 Mg Tab PO 50 mg DAILY [place] Administration Mirtazapine 45 mg 10/31/21 22:00 10/31/21 21:50 Mirtazapine 15 Mg Tab PO 45 mg HS [place] Administration Olanzapine 20 mg 10/31/21 22:00 10/31/21 21:49 Olanzapine 10 Mg Tab PO 20 mg QHS [place] Administration Pantoprazole Sodium 40 mg 10/31/21 10:00 11/01/21 11:54 Pantoprazole 40 Mg Tab PO 40 mg DAILY [place] Administration
[2021-11-01] MEDS: MIRTAZAPINE 15 MG TAB PO SCH (22:02)
[2021-11-02] MEDS: busPIRone 10 MG TAB PO SCH ×3 (08:43→20:52)
[2021-11-02] MEDS: hydrOXYzine PAMOATE 25 MG CAP PO PRN (08:43)
[2021-11-02] MEDS: GABAPENTIN 100 MG CAP PO SCH ×3 (08:43→20:52)
--- NOTE | 2021-11-02 09:33 | Progress Note ---
Subjective Date of service: 11/02/21 Subjective Comment: 11/02: The patient was seen today. He states he is ok. He reports depression as 2/10. He denies any current suicidal/homicidal ideation and denies hallucinations. No changes made today. 11/01: The patient was seen today.He reports doing well. The patient presents with appropriate affect, he denies depression. He denies any current suicidal/homicidal ideation and denies hallucinations. No changes made today. REVIEW OF SYSTEMS Constitutional: Negative for weight loss ENT: Negative for stridor Respiratory: Negative for cough or hemoptysis All other systems reviewed and are negative MENTAL STATUS EXAMINATION General Appearance and Behavior: Age appropriate, good hygiene, wearing appropriate clothes, fair eye contact, calm, cooperative and polite Cooperation: Cooperative Psychomotor Behavior: Psychomotor normal Mood: Depressed Affect and affective range: congruent with stated mood Thought Process: Goal directed Thought Content: Reality oriented Speech: normal tone and pace Suicidal Ideation: Denies Homicidal Ideation: Denies Hallucinations: Denies Delusions: None elicited Impulse Control: Limited Insight and Judgment: Limited insight and judgment Memory: Limited Attention: attentive Orientation: Alert, oriented Assessment and Plan Bipolar Disorder Treatment Plan Patient admitted for inpatient psychiatric evaluation, medication adjustment and close monitoring The patient's behavior, mood, sleep and appetite will be closely monitored. Patient enrolled in individual and group therapeutic sessions and encouraged to attend. Patient provided with a safe and structured environment. Patient's physical health needs will be addressed by the Hospitalist. Hospitalist Consulted Labs including CBC, CMP, Lipid profile and Hemoglobin A1C levels ordered for baseline reference Social Assessment will be completed and the Fire Sprinkler Designer will work with patient and family to ensure a suitable and safe disposition Medication adjustment will be made as clinically indicated Continue home meds Usual Wellness Rastafari/Preservation: - Start Trazodone 50 mg po QHS & 50 mg po QHS PRN between 10 PM & 2 AM for insomnia - Start Melatonin 5 mg po QHS to promote circadian rhythm The patient agreed on the treatment plan, understood the risk, benefit, alternative treatment, potential consequence of no treatment, and gave informed consent. Estimated days: 7 Post hospital care: primary care provider, psychiatric provider Case staffed with Dr. Cruz Legal Status: Voluntary Reaction to Hospitalization: Accepting Medications and Allergies Legal Status: Voluntary Medications and Allergies Allergies Allergy/AdvReac Type Severity Reaction Status Date / Time Penicillins Allergy Unknown Verified 10/30/21 13:59 Home Medications Medication Instructions Recorded Confirmed Last Taken Type Gabapentin 100 mg PO TID 10/31/21 10/31/21 Unknown History Mirtazapine [Remeron] 45 mg PO HS 10/31/21 10/31/21 Unknown History OLANZapine [Zyprexa] 20 mg PO HS 10/31/21 10/31/21 Unknown History Pantoprazole [Protonix TAB] 40 mg PO DAILY 10/31/21 10/31/21 Unknown History busPIRone [Buspar] 10 mg PO TID 10/31/21 10/31/21 Unknown History hydrOXYzine PAMOATE [Vistaril] 25 mg PO BID PRN 10/31/21 10/31/21 Unknown History hydroCHLOROthiazide [HCTZ] 12.5 mg PO DAILY 10/31/21 10/31/21 Unknown History lamoTRIgine [Lamictal] 50 mg PO DAILY 10/31/21 10/31/21 Unknown History Active Meds: Active Medications Acetaminophen (Acetaminophen 325 Mg Tab) 650 mg PO Q6H PRN PRN Reason: Pain, Mild (1-3) Last Admin: 11/01/21 12:45 Dose: 650 mg Buspirone HCl (Buspirone 10 Mg Tab) 10 mg PO TID [facility] Last Admin: 11/02/21 08:43 Dose: 10 mg Gabapentin (Gabapentin 100 Mg Cap) 100 mg PO TID [facility] Last Admin: 11/02/21 08:43 Dose: 100 mg Hydrochlorothiazide (Hydrochlorothiazide 12.5 Mg Cap) 12.5 mg PO DAILY [facility] Last Admin: 11/01/21 11:53 Dose: 12.5 mg Hydroxyzine Pamoate (Hydroxyzine Pamoate 25 Mg Cap) 25 mg PO BID PRN PRN Reason: Anxiety Last Admin: 11/02/21 08:43 Dose: 25 mg Lamotrigine (Lamotrigine 25 Mg Tab) 50 mg PO DAILY [facility] Last Admin: 11/01/21 11:53 Dose: 50 mg Mirtazapine (Mirtazapine 15 Mg Tab) 45 mg PO [facility] Last Admin: 11/01/21 22:02 Dose: 45 mg Olanzapine (Olanzapine 10 Mg Tab) 20 mg PO QHS [facility] Last Admin: 11/01/21 22:02 Dose: 20 mg Pantoprazole Sodium (Pantoprazole 40 Mg Tab) 40 mg PO DAILY [facility] Last Admin: 11/01/21 11:54 Dose: 40 mg Results - Results Labs/Vitals: Laboratory Last Values WBC 5.3 K/mm3 (4.5-11.0) 10/31/21 07: RBC 4.66 M/mm3 (3.65-5.03) 10/31/21 07:26 Hgb 11.2 gm/dl (11.8-15.2) L 10/31/21 07:26 Hct 35.2 % (35.5-45.6) L 10/31/21 07:26 MCV 76 fl (84-94) L 10/31/21 07: MCH 24 pg (28-32) L 10/31/21 07: MCHC 32 % (32-34) 10/31/21 07: RDW 18.0 % (13.2-15.2) H 10/31/21 07:26 Plt Count 212 K/mm3 (140-440) 10/31/21 07:26 Lymph % (Auto) 27.6 % (13.4-35.0) 10/31/21 07:26 [place] % (Auto) 7.2 % (0.0-7.3) 10/31/21 07: Eos % (Auto) 2.9 % (0.0-4.3) 10/31/21 07: Baso % (Auto) 0.7 % (0.0-1.8) 10/31/21 07: Lymph # (Auto) 1.5 K/mm3 (1.2-5.4) 10/31/21 07: [place]ws # (Auto) 0.4 K/mm3 (0.0-0.8) 10/31/21 07:26 Eos # (Auto) 0.2 K/mm3 (0.0-0.4) 10/31/21 07: Baso # (Auto) 0.0 K/mm3 (0.0-0.1) 10/31/21 07:26 Seg Neutrophils % 61.6 % (40.0-70.0) 10/31/21 07:26 Seg Neutrophils # 3.2 K/mm3 (1.8-7.7) 10/31/21 07:26 Sodium 139 mmol/L (137-145) 10/31/21 07:26 Potassium 4.1 mmol/L (3.6-5.0) 10/31/21 07:26 Chloride 103.9 mmol/L (98-107) 10/31/21 07:26 Carbon Dioxide 26 mmol/L (22-30) 10/31/21 07:26 Anion Gap 13 mmol/L 10/31/21 07:26 BUN 9 mg/dL (9-20) 10/31/21 07:26 Creatinine 0.8 mg/dL (0.8-1.3) 10/31/21 07:26 Estimated GFR > 60 ml/min 10/31/21 07:26 BUN/Creatinine Ratio 11 % 10/31/21 07:26 Glucose 91 mg/dL (75-100) 10/31/21 07:26 Hemoglobin A1c 6.4 % (4-6) H 10/31/21 07:26 Calcium 8.9 mg/dL (8.4-10.2) 10/31/21 07:26 Total Bilirubin 0.40 mg/dL (0.1-1.2) 10/31/21 07:26 AST 36 units/L (5-40) 10/31/21 07:26 ALT 20 units/L (7-56) 10/31/21 07:26 Alkaline Phosphatase 93 units/L (35-129) 10/31/21 07:26 Total Protein 6.8 g/dL (6.3-8.2) 10/31/21 07:26 Albumin 3.6 g/dL (3.9-5) L 10/31/21 07:26 Albumin/Globulin Ratio 1.1 % 10/31/21 07:26 Triglycerides 100 mg/dL (2-149) 10/31/21 07:26 Cholesterol 131 mg/dL (50-199) 10/31/21 07:26 LDL Cholesterol Direct 63 mg/dL (50-130) 10/31/21 07:26 HDL Cholesterol 51 mg/dL (40-59) 10/31/21 07:26 Cholesterol/HDL Ratio 2.56 % 10/31/21 07:26 TSH 1.510 mlU/mL (0.270-4.200) 10/31/21 07:26 Last Vital Signs Temp 97.2 F L 05/15/22 19:48 Pulse 96 H 11/01/21 20:51 Resp 18 11/01/21 20:51 BP 121/83 11/01/21 19:48 Pulse Ox 96 11/01/21 20:51
[2021-11-02] MEDS: PANTOPRAZOLE 40 MG TAB PO SCH (09:58)
[2021-11-02] MEDS: hydroCHLOROthiazide 12.5 MG CAP PO SCH (09:58)
[2021-11-02] MEDS: lamoTRIgine 25 MG TAB PO SCH (09:58)
--- NOTE | 2021-11-02 21:21 | Progress Note ---
Assessment and Plan - Patient Problems (1) Hypertension Current Visit: Yes Status: Acute Qualifiers: Hypertension type: primary hypertension Qualified Code(s): I10 - Essential (primary) hypertension Plan to address problem: Monitor blood pressure every shift, continue medical management. (2) Osteoarthritis Current Visit: Yes Status: Acute Plan to address problem: Pain control as clinically indicated, supportive care. (3) Schizophrenia Current Visit: Yes Status: Acute Qualifiers: Schizophrenia type: unspecified Qualified Code(s): F20.9 - Schizophrenia, unspecified Plan to address problem: Continue medical management, supportive care, behavior change counseling, cognitive behavioral therapy. (4) Bipolar disorder Current Visit: Yes Status: Acute Qualifiers: Current episode severity: unspecified Plan to address problem: Continue medical management, supportive care. (5) Advance care planning Current Visit: Yes Status: Acute Plan to address problem: Disease education conducted, care plan discussed, diagnoses discussed, prognosis discussed, patient is full code. Patient knowledges understanding and agreement with care plan, +30 minutes. History Interval history: 51 YO Male with HTN, OA, Schizophrenia, Bipolar Disorder admitted to [facility] psych unit for psychiatric stabilization. Consult placed by Dr. Li for medical management. Patient seen and evaluated in the patient room. Patient resting comfortably. No reported nursing events. Patient remains at baseline level of cognition and function. Hospitalist Physical - Constitutional Vitals: Temp Pulse Resp BP Pulse Ox 97.8 F 112 H 18 112/87 98 11/02/21 09:56 11/02/21 09:56 11/02/21 09:56 11/02/21 09:56 11/02/21 09:56 General appearance: Present: no acute distress, well-nourished - EENT Eyes: Present: PERRL ENT: hearing intact - Neck Neck: Present: supple - Respiratory Respiratory effort: normal Respiratory: bilateral: CTA - Cardiovascular Rhythm: regular Heart Sounds: Present: S1 & S2 - Extremities Extremities: no ischemia Peripheral Pulses: within normal limits - Abdominal General gastrointestinal: soft, non-tender, non-distended - Integumentary Integumentary: Present: clear, dry - Psychiatric Psychiatric: cooperative - Neurologic Neurologic: CNII-XII intact Results - Labs CBC & Chem 7: 10/31/21 07:26 10/31/21 07:26 Labs: Laboratory Last Values WBC 5.3 K/mm3 (4.5-11.0) 10/31/21 07: RBC 4.66 M/mm3 (3.65-5.03) 10/31/21 07: Hgb 11.2 gm/dl (11.8-15.2) L 10/31/21 07:26 Hct 35.2 % (35.5-45.6) L 10/31/21 07:26 MCV 76 fl (84-94) L 10/31/21 07: MCH 24 pg (28-32) L 10/31/21 07: MCHC 32 % (32-34) 10/31/21 07: RDW 18.0 % (13.2-15.2) H 10/31/21 07: Plt Count 212 K/mm3 (140-440) 10/31/21 07:26 Lymph % (Auto) 27.6 % (13.4-35.0) 10/31/21 07: [place] % (Auto) 7.2 % (0.0-7.3) 10/31/21 07: Eos % (Auto) 2.9 % (0.0-4.3) 10/31/21 07: Baso % (Auto) 0.7 % (0.0-1.8) 10/31/21 07: Lymph # (Auto) 1.5 K/mm3 (1.2-5.4) 10/31/21 07: [place] # (Auto) 0.4 K/mm3 (0.0-0.8) 10/31/21 07: Eos # (Auto) 0.2 K/mm3 (0.0-0.4) 10/31/21 07: Baso # (Auto) 0.0 K/mm3 (0.0-0.1) 10/31/21 07: Seg Neutrophils % 61.6 % (40.0-70.0) 10/31/21 07: Seg Neutrophils # 3.2 K/mm3 (1.8-7.7) 10/31/21 07:26 Sodium 139 mmol/L (137-145) 10/31/21 07:26 Potassium 4.1 mmol/L (3.6-5.0) 10/31/21 07: Chloride 103.9 mmol/L (98-107) 10/31/21 07:26 Carbon Dioxide 26 mmol/L (22-30) 10/31/21 07:26 Anion Gap 13 mmol/L 10/31/21 07:26 BUN 9 mg/dL (9-20) 10/31/21 07:26 Creatinine 0.8 mg/dL (0.8-1.3) 10/31/21 07:26 Estimated GFR > 60 ml/min 10/31/21 07:26 BUN/Creatinine Ratio 11 % 10/31/21 07:26 Glucose 91 mg/dL (75-100) 10/31/21 07:26 Hemoglobin A1c 6.4 % (4-6) H 10/31/21 07:26 Calcium 8.9 mg/dL (8.4-10.2) 10/31/21 07:26 Total Bilirubin 0.40 mg/dL (0.1-1.2) 10/31/21 07:26 AST 36 units/L (5-40) 10/31/21 07:26 ALT 20 units/L (7-56) 10/31/21 07:26 Alkaline Phosphatase 93 units/L (35-129) 10/31/21 07:26 Total Protein 6.8 g/dL (6.3-8.2) 10/31/21 07:26 Albumin 3.6 g/dL (3.9-5) L 10/31/21 07:26 Albumin/Globulin Ratio 1.1 % 10/31/21 07:26 Triglycerides 100 mg/dL (2-149) 10/31/21 07:26 Cholesterol 131 mg/dL (50-199) 10/31/21 07:26 LDL Cholesterol Direct 63 mg/dL (50-130) 10/31/21 07:26 HDL Cholesterol 51 mg/dL (40-59) 10/31/21 07:26 Cholesterol/HDL Ratio 2.56 % 10/31/21 07:26 TSH 1.510 mlU/mL (0.270-4.200) 10/31/21 07:26 Frias/IV: Voiding Method Toilet Active Medications - Current Medications Current Medications: Generic Name Dose Route Start Last Admin Trade Name Freq PRN Reason Stop Dose Admin Acetaminophen 650 mg 10/31/21 16:26 11/01/21 12:45 Acetaminophen 325 Mg Tab PO 650 mg Q6H PRN Administration Pain, Mild (1-3) Buspirone HCl 10 mg 10/31/21 14:00 11/02/21 20:52 Buspirone 10 Mg Tab PO 10 mg TID [place] Administration Gabapentin 100 mg 10/31/21 09:00 11/02/21 20:52 Gabapentin 100 Mg Cap PO 100 mg TID [place] Administration Hydrochlorothiazide 12.5 mg 10/31/21 10:00 11/02/21 09:58 Hydrochlorothiazide 12.5 Mg Cap PO 12.5 mg DAILY [place] Administration Hydroxyzine Pamoate 25 mg 10/31/21 08:26 11/02/21 08:43 Hydroxyzine Pamoate 25 Mg Cap PO 25 mg BID PRN Administration Anxiety Lamotrigine 50 mg 10/31/21 10:00 11/02/21 09:58 Lamotrigine 25 Mg Tab PO 50 mg DAILY [place] Administration Mirtazapine 45 mg 10/31/21 22:00 11/01/21 22:02 Mirtazapine 15 Mg Tab PO 45 mg HS [place] Administration Olanzapine 20 mg 10/31/21 22:00 11/01/21 22:02 Olanzapine 10 Mg Tab PO 20 mg QHS [facility] Administration Pantoprazole Sodium 40 mg 10/31/21 10:00 11/02/21 09:58 Pantoprazole 40 Mg Tab PO 40 mg DAILY [facility] Administration
[2021-11-02] MEDS: MIRTAZAPINE 15 MG TAB PO SCH (21:34)
[2021-11-02] MEDS: ACETAMINOPHEN 325 MG TAB PO PRN (21:35)
[2021-11-03] MEDS: busPIRone 10 MG TAB PO SCH ×3 (08:00→21:38)
[2021-11-03] MEDS: GABAPENTIN 100 MG CAP PO SCH ×3 (08:00→21:38)
--- NOTE | 2021-11-03 09:54 | Progress Note ---
Subjective Date of service: 11/03/21 Subjective Comment: 11/03:The patient was seen today. He states he is doing well. He reports depression as 5/10. He denies any current suicidal/homicidal ideation and denies hallucinations. Start Haldol 5mg po BID, decrease Zyprexa to 5mg po QHS- Plan to Start Haldol [facility] 11/02: The patient was seen today. He states he is ok. He reports depression as 2/10. He denies any current suicidal/homicidal ideation and denies hallucinations. No changes made today. 11/01: The patient was seen today.He reports doing well. The patient presents with appropriate affect, he denies depression. He denies any current suicidal/homicidal ideation and denies hallucinations. No changes made today. REVIEW OF SYSTEMS Constitutional: Negative for weight loss ENT: Negative for stridor Respiratory: Negative for cough or hemoptysis All other systems reviewed and are negative MENTAL STATUS EXAMINATION General Appearance and Behavior: Age appropriate, good hygiene, wearing appropriate clothes, fair eye contact, calm, cooperative and polite Cooperation: Cooperative Psychomotor Behavior: Psychomotor normal Mood: Depressed Affect and affective range: congruent with stated mood Thought Process: Goal directed Thought Content: Reality oriented Speech: normal tone and pace Suicidal Ideation: Denies Homicidal Ideation: Denies Hallucinations: Denies Delusions: None elicited Impulse Control: Limited Insight and Judgment: Limited insight and judgment Memory: Limited Attention: attentive Orientation: Alert, oriented Assessment and Plan Bipolar Disorder Schizophrenia Treatment Plan Patient admitted for inpatient psychiatric evaluation, medication adjustment and close monitoring The patient's behavior, mood, sleep and appetite will be closely monitored. Patient enrolled in individual and group therapeutic sessions and encouraged to attend. Patient provided with a safe and structured environment. Patient's physical health needs will be addressed by the Hospitalist. Hospitalist Consulted Labs including CBC, CMP, Lipid profile and Hemoglobin A1C levels ordered for baseline reference Social Assessment will be completed and the Ton Container Filler will work with patient and family to ensure a suitable and safe disposition Medication adjustment will be made as clinically indicated Continue home meds Usual Wellness Mandaen/Preservation: - Start Trazodone 50 mg po QHS & 50 mg po QHS PRN between 10 PM & 2 AM for insomnia - Start Melatonin 5 mg po QHS to promote circadian rhythm The patient agreed on the treatment plan, understood the risk, benefit, alternative treatment, potential consequence of no treatment, and gave informed consent. Estimated days: 3 Post hospital care: primary care provider, psychiatric provider Case staffed with Dr. Cruz Legal Status: Voluntary Reaction to Hospitalization: Accepting Medications and Allergies Legal Status: Voluntary Medications and Allergies Allergies Allergy/AdvReac Type Severity Reaction Status Date / Time Penicillins Allergy Unknown Verified 10/30/21 13:59 Home Medications Medication Instructions Recorded Confirmed Last Taken Type Gabapentin 100 mg PO TID 10/31/21 10/31/21 Unknown History Mirtazapine [Remeron] 45 mg PO HS 10/31/21 10/31/21 Unknown History OLANZapine [Zyprexa] 20 mg PO HS 10/31/21 10/31/21 Unknown History Pantoprazole [Protonix TAB] 40 mg PO DAILY 10/31/21 10/31/21 Unknown History busPIRone [Buspar] 10 mg PO TID 10/31/21 10/31/21 Unknown History hydrOXYzine PAMOATE [Vistaril] 25 mg PO BID PRN 10/31/21 10/31/21 Unknown History hydroCHLOROthiazide [HCTZ] 12.5 mg PO DAILY 10/31/21 10/31/21 Unknown History lamoTRIgine [Lamictal] 50 mg PO DAILY 10/31/21 10/31/21 Unknown History Active Meds: Active Medications Acetaminophen (Acetaminophen 325 Mg Tab) 650 mg PO Q6H PRN PRN Reason: Pain, Mild (1-3) Last Admin: 11/02/21 21:35 Dose: 650 mg Buspirone HCl (Buspirone 10 Mg Tab) 10 mg PO TID [facility] Last Admin: 11/02/21 20:52 Dose: 10 mg Gabapentin (Gabapentin 100 Mg Cap) 100 mg PO TID [facility] Last Admin: 11/02/21 20:52 Dose: 100 mg Haloperidol (Haloperidol 5 Mg Tab) 5 mg PO BID [facility] Haloperidol Decanoate (Haloperidol Decanoate 100 Mg/1 Ml Inj) 50 mg IM ONCE ONE Stop: 11/05/21 09:01 Hydrochlorothiazide (Hydrochlorothiazide 12.5 Mg Cap) 12.5 mg PO DAILY [facility] Last Admin: 11/02/21 09:58 Dose: 12.5 mg Hydroxyzine Pamoate (Hydroxyzine Pamoate 25 Mg Cap) 25 mg PO BID PRN PRN Reason: Anxiety Last Admin: 11/02/21 08:43 Dose: 25 mg Lamotrigine (Lamotrigine 25 Mg Tab) 50 mg PO DAILY [facility] Last Admin: 11/02/21 09:58 Dose: 50 mg Mirtazapine (Mirtazapine 15 Mg Tab) 45 mg PO HS [facility] Last Admin: 11/02/21 21:34 Dose: 45 mg Olanzapine (Olanzapine 5 Mg Tab) 5 mg PO QHS [place] Pantoprazole Sodium (Pantoprazole 40 Mg Tab) 40 mg PO DAILY [facility] Last Admin: 11/02/21 09:58 Dose: 40 mg Results - Results Labs/Vitals: Laboratory Last Values WBC 5.3 K/mm3 (4.5-11.0) 10/31/21 07:26 RBC 4.66 M/mm3 (3.65-5.03) 10/31/21 07:26 Hgb 11.2 gm/dl (11.8-15.2) L 10/31/21 07:26 Hct 35.2 % (35.5-45.6) L 10/31/21 07:26 MCV 76 fl (84-94) L 10/31/21 07:26 MCH 24 pg (28-32) L 10/31/21 07:26 MCHC 32 % (32-34) 10/31/21 07:26 RDW 18.0 % (13.2-15.2) H 10/31/21 07:26 Plt Count 212 K/mm3 (140-440) 10/31/21 07:26 Lymph % (Auto) 27.6 % (13.4-35.0) 10/31/21 07:26 [place] % (Auto) 7.2 % (0.0-7.3) 10/31/21 07:26 Eos % (Auto) 2.9 % (0.0-4.3) 10/31/21 07:26 Baso % (Auto) 0.7 % (0.0-1.8) 10/31/21 07:26 Lymph # (Auto) 1.5 K/mm3 (1.2-5.4) 10/31/21 07:26 [place] # (Auto) 0.4 K/mm3 (0.0-0.8) 10/31/21 07:26 Eos # (Auto) 0.2 K/mm3 (0.0-0.4) 10/31/21 07:26 Baso # (Auto) 0.0 K/mm3 (0.0-0.1) 10/31/21 07:26 Seg Neutrophils % 61.6 % (40.0-70.0) 10/31/21 07:26 Seg Neutrophils # 3.2 K/mm3 (1.8-7.7) 10/31/21 07:26 Sodium 139 mmol/L (137-145) 10/31/21 07:26 Potassium 4.1 mmol/L (3.6-5.0) 10/31/21 07:26 Chloride 103.9 mmol/L (98-107) 10/31/21 07:26 Carbon Dioxide 26 mmol/L (22-30) 10/31/21 07:26 Anion Gap 13 mmol/L 10/31/21 07:26 BUN 9 mg/dL (9-20) 10/31/21 07:26 Creatinine 0.8 mg/dL (0.8-1.3) 10/31/21 07:26 Estimated GFR > 60 ml/min 10/31/21 07:26 BUN/Creatinine Ratio 11 % 10/31/21 07:26 Glucose 91 mg/dL (75-100) 10/31/21 07:26 Hemoglobin A1c 6.4 % (4-6) H 10/31/21 07:26 Calcium 8.9 mg/dL (8.4-10.2) 10/31/21 07:26 Total Bilirubin 0.40 mg/dL (0.1-1.2) 10/31/21 07:26 AST 36 units/L (5-40) 10/31/21 07:26 ALT 20 units/L (7-56) 10/31/21 07:26 Alkaline Phosphatase 93 units/L (35-129) 10/31/21 07:26 Total Protein 6.8 g/dL (6.3-8.2) 10/31/21 07:26 Albumin 3.6 g/dL (3.9-5) L 10/31/21 07:26 Albumin/Globulin Ratio 1.1 % 10/31/21 07:26 Triglycerides 100 mg/dL (2-149) 10/31/21 07:26 Cholesterol 131 mg/dL (50-199) 10/31/21 07:26 LDL Cholesterol Direct 63 mg/dL (50-130) 10/31/21 07:26 HDL Cholesterol 51 mg/dL (40-59) 10/31/21 07:26 Cholesterol/HDL Ratio 2.56 % 10/31/21 07:26 TSH 1.510 mlU/mL (0.270-4.200) 10/31/21 07:26 Last Vital Signs Temp 98.3 F 11/02/21 20:24 Pulse 107 H 11/02/21 20:24 Resp 17 11/02/21 20:24 BP 117/86 11/02/21 20:24 Pulse Ox 96 11/02/21 20:24
[2021-11-03] MEDS: lamoTRIgine 25 MG TAB PO SCH (10:52)
[2021-11-03] MEDS: hydroCHLOROthiazide 12.5 MG CAP PO SCH (10:53)
[2021-11-03] MEDS: hydrOXYzine PAMOATE 25 MG CAP PO PRN (10:54)
[2021-11-03] MEDS: PANTOPRAZOLE 40 MG TAB PO SCH (10:54)
[2021-11-03] MEDS: HALOPERIDOL 5 MG TAB PO SCH ×2 (11:31→21:36)
[2021-11-03] MEDS: ACETAMINOPHEN 325 MG TAB PO PRN (21:35)
[2021-11-03] MEDS: MIRTAZAPINE 15 MG TAB PO SCH (21:37)
[2021-11-04] MEDS: lamoTRIgine 25 MG TAB PO SCH (09:32)
[2021-11-04] MEDS: PANTOPRAZOLE 40 MG TAB PO SCH (09:32)
[2021-11-04] MEDS: GABAPENTIN 100 MG CAP PO SCH ×3 (09:32→20:34)
[2021-11-04] MEDS: HALOPERIDOL 5 MG TAB PO SCH ×2 (09:33→22:24)
[2021-11-04] MEDS: hydroCHLOROthiazide 12.5 MG CAP PO SCH (09:33)
[2021-11-04] MEDS: busPIRone 10 MG TAB PO SCH ×3 (09:33→20:33)
--- NOTE | 2021-11-04 11:12 | Progress Note ---
Subjective Date of service: 11/04/21 Subjective Comment: 11/04:The patient was seen today. He states he is doing better, reports depression as 4/10. He denies any current suicidal/homicidal ideation and denies hallucinations. 11/03:The patient was seen today. He states he is doing well. He reports depression as 5/10. He denies any current suicidal/homicidal ideation and denies hallucinations. Start Haldol 5mg po BID, decrease Zyprexa to 5mg po QHS- Plan to Start Haldol [facility] 11/02: The patient was seen today. He states he is ok. He reports depression as 2/10. He denies any current suicidal/homicidal ideation and denies hallucinations. No changes made today. 11/01: The patient was seen today.He reports doing well. The patient presents with appropriate affect, he denies depression. He denies any current suicidal/homicidal ideation and denies hallucinations. No changes made today. REVIEW OF SYSTEMS Constitutional: Negative for weight loss ENT: Negative for stridor Respiratory: Negative for cough or hemoptysis All other systems reviewed and are negative MENTAL STATUS EXAMINATION General Appearance and Behavior: Age appropriate, good hygiene, wearing appropriate clothes, fair eye contact, calm, cooperative and polite Cooperation: Cooperative Psychomotor Behavior: Psychomotor normal Mood: Depressed Affect and affective range: congruent with stated mood Thought Process: Goal directed Thought Content: Reality oriented Speech: normal tone and pace Suicidal Ideation: Denies Homicidal Ideation: Denies Hallucinations: Denies Delusions: None elicited Impulse Control: Limited Insight and Judgment: Limited insight and judgment Memory: Limited Attention: attentive Orientation: Alert, oriented Assessment and Plan Bipolar Disorder Schizophrenia Treatment Plan Patient admitted for inpatient psychiatric evaluation, medication adjustment and close monitoring The patient's behavior, mood, sleep and appetite will be closely monitored. Patient enrolled in individual and group therapeutic sessions and encouraged to attend. Patient provided with a safe and structured environment. Patient's physical health needs will be addressed by the Hospitalist. Hospitalist Consulted Labs including CBC, CMP, Lipid profile and Hemoglobin A1C levels ordered for baseline reference Social Assessment will be completed and the Interactive Media Designer will work with patient and family to ensure a suitable and safe disposition Medication adjustment will be made as clinically indicated Continue home meds Usual Wellness Muslim/Preservation: - Start Trazodone 50 mg po QHS & 50 mg po QHS PRN between 10 PM & 2 AM for insomnia - Start Melatonin 5 mg po QHS to promote circadian rhythm The patient agreed on the treatment plan, understood the risk, benefit, alternative treatment, potential consequence of no treatment, and gave informed consent. Estimated days: 3 Post hospital care: primary care provider, psychiatric provider Case staffed with Dr. Cruz Legal Status: Voluntary Reaction to Hospitalization: Accepting Medications and Allergies Legal Status: Voluntary Medications and Allergies Allergies Allergy/AdvReac Type Severity Reaction Status Date / Time Penicillins Allergy Unknown Verified 10/30/21 13:59 Home Medications Medication Instructions Recorded Confirmed Last Taken Type Gabapentin 100 mg PO TID 10/31/21 10/31/21 Unknown History Mirtazapine [Remeron] 45 mg PO HS 10/31/21 10/31/21 Unknown History OLANZapine [Zyprexa] 20 mg PO HS 10/31/21 10/31/21 Unknown History Pantoprazole [Protonix TAB] 40 mg PO DAILY 10/31/21 10/31/21 Unknown History busPIRone [Buspar] 10 mg PO TID 10/31/21 10/31/21 Unknown History hydrOXYzine PAMOATE [Vistaril] 25 mg PO BID PRN 10/31/21 10/31/21 Unknown History hydroCHLOROthiazide [HCTZ] 12.5 mg PO DAILY 10/31/21 10/31/21 Unknown History lamoTRIgine [Lamictal] 50 mg PO DAILY 10/31/21 10/31/21 Unknown History Active Meds: Active Medications Acetaminophen (Acetaminophen 325 Mg Tab) 650 mg PO Q6H PRN PRN Reason: Pain, Mild (1-3) Last Admin: 11/03/21 21:35 Dose: 650 mg Buspirone HCl (Buspirone 10 Mg Tab) 10 mg PO TID [facility] Last Admin: 11/04/21 09:33 Dose: 10 mg Gabapentin (Gabapentin 100 Mg Cap) 100 mg PO TID [facility] Last Admin: 11/04/21 09:32 Dose: 100 mg Haloperidol (Haloperidol 5 Mg Tab) 5 mg PO BID [facility] Last Admin: 11/04/21 09:33 Dose: 5 mg Haloperidol Decanoate (Haloperidol Decanoate 100 Mg/1 Ml Inj) 50 mg IM ONCE ONE Stop: 11/05/21 11:01 Hydrochlorothiazide (Hydrochlorothiazide 12.5 Mg Cap) 12.5 mg PO DAILY [facility] Last Admin: 11/04/21 09:33 Dose: 12.5 mg Hydroxyzine Pamoate (Hydroxyzine Pamoate 25 Mg Cap) 25 mg PO BID PRN PRN Reason: Anxiety Last Admin: 11/03/21 10:54 Dose: 25 mg Lamotrigine (Lamotrigine 25 Mg Tab) 50 mg PO DAILY [facility] Last Admin: 11/04/21 09:32 Dose: 50 mg Mirtazapine (Mirtazapine 15 Mg Tab) 45 mg PO HS [facility] Last Admin: 11/03/21 21:37 Dose: 45 mg Olanzapine (Olanzapine 5 Mg Tab) 5 mg PO QHS [facility] Last Admin: 11/03/21 21:35 Dose: 5 mg Pantoprazole Sodium (Pantoprazole 40 Mg Tab) 40 mg PO DAILY [facility] Last Admin: 11/04/21 09:32 Dose: 40 mg Results - Results Labs/Vitals: Laboratory Last Values WBC 5.3 K/mm3 (4.5-11.0) 10/31/21 07:26 RBC 4.66 M/mm3 (3.65-5.03) 10/31/21 07:26 Hgb 11.2 gm/dl (11.8-15.2) L 10/31/21 07:26 Hct 35.2 % (35.5-45.6) L 10/31/21 07:26 MCV 76 fl (84-94) L 10/31/21 07:26 MCH 24 pg (28-32) L 10/31/21 07:26 MCHC 32 % (32-34) 10/31/21 07:26 RDW 18.0 % (13.2-15.2) H 10/31/21 07:26 Plt Count 212 K/mm3 (140-440) 10/31/21 07:26 Lymph % (Auto) 27.6 % (13.4-35.0) 10/31/21 07:26 [place] % (Auto) 7.2 % (0.0-7.3) 10/31/21 07:26 Eos % (Auto) 2.9 % (0.0-4.3) 10/31/21 07:26 Baso % (Auto) 0.7 % (0.0-1.8) 10/31/21 07:26 Lymph # (Auto) 1.5 K/mm3 (1.2-5.4) 10/31/21 07:26 [place] # (Auto) 0.4 K/mm3 (0.0-0.8) 10/31/21 07:26 Eos # (Auto) 0.2 K/mm3 (0.0-0.4) 10/31/21 07:26 Baso # (Auto) 0.0 K/mm3 (0.0-0.1) 10/31/21 07:26 Seg Neutrophils % 61.6 % (40.0-70.0) 10/31/21 07: Seg Neutrophils # 3.2 K/mm3 (1.8-7.7) 10/31/21 07:26 Sodium 139 mmol/L (137-145) 10/31/21 07:26 Potassium 4.1 mmol/L (3.6-5.0) 10/31/21 07:26 Chloride 103.9 mmol/L (98-107) 10/31/21 07:26 Carbon Dioxide 26 mmol/L (22-30) 10/31/21 07:26 Anion Gap 13 mmol/L 10/31/21 07:26 BUN 9 mg/dL (9-20) 10/31/21 07:26 Creatinine 0.8 mg/dL (0.8-1.3) 10/31/21 07:26 Estimated GFR > 60 ml/min 10/31/21 07:26 BUN/Creatinine Ratio 11 % 10/31/21 07:26 Glucose 91 mg/dL (75-100) 10/31/21 07:26 Hemoglobin A1c 6.4 % (4-6) H 10/31/21 07:26 Calcium 8.9 mg/dL (8.4-10.2) 10/31/21 07:26 Total Bilirubin 0.40 mg/dL (0.1-1.2) 10/31/21 07:26 AST 36 units/L (5-40) 10/31/21 07:26 ALT 20 units/L (7-56) 10/31/21 07:26 Alkaline Phosphatase 93 units/L (35-129) 10/31/21 07:26 Total Protein 6.8 g/dL (6.3-8.2) 10/31/21 07:26 Albumin 3.6 g/dL (3.9-5) L 10/31/21 07:26 Albumin/Globulin Ratio 1.1 % 10/31/21 07:26 Triglycerides 100 mg/dL (2-149) 10/31/21 07:26 Cholesterol 131 mg/dL (50-199) 10/31/21 07:26 LDL Cholesterol Direct 63 mg/dL (50-130) 10/31/21 07:26 HDL Cholesterol 51 mg/dL (40-59) 10/31/21 07:26 Cholesterol/HDL Ratio 2.56 % 10/31/21 07:26 TSH 1.510 mlU/mL (0.270-4.200) 10/31/21 07:26 Last Vital Signs Temp 98.4 F 11/04/21 07:48 Pulse 111 H 11/04/21 07:48 Resp 16 11/04/21 07:48 BP 115/76 11/04/21 07:48 Pulse Ox 97 11/04/21 07:48
[2021-11-04] MEDS: ACETAMINOPHEN 325 MG TAB PO PRN (20:33)
[2021-11-04] MEDS: MIRTAZAPINE 15 MG TAB PO SCH (22:24)
[2021-11-05] MEDS: ACETAMINOPHEN 325 MG TAB PO PRN ×2 (04:14→10:47)
--- NOTE | 2021-11-05 08:31 | Progress Note ---
Assessment and Plan Assessment and Plan - Patient Problems (1) Hypertension Current Visit: Yes Status: Acute Qualifiers: Hypertension type: primary hypertension Qualified Code(s): I10 - Essential (primary) hypertension Plan to address problem: Monitor blood pressure every shift, continue medical management. (2) Osteoarthritis Current Visit: Yes Status: Acute Plan to address problem: Pain control as clinically indicated, supportive care. (3) Schizophrenia Current Visit: Yes Status: Acute Qualifiers: Schizophrenia type: unspecified Qualified Code(s): F20.9 - Schizophrenia, unspecified Plan to address problem: Continue medical management, supportive care, behavior change counseling, cognitive behavioral therapy. (4) Bipolar disorder Current Visit: Yes Status: Acute Qualifiers: Current episode severity: unspecified Plan to address problem: Continue medical management, supportive care. (5) Advance care planning Current Visit: Yes Status: Acute Plan to address problem: Disease education conducted, care plan discussed, diagnoses discussed, prognosis discussed, patient is full code. Patient knowledges understanding and agreement with care plan, +30 minutes. Subjective Date of service: 11/03/21 Principal diagnosis: Bipolar disorder, schizophrenia Interval history: History Interval history: 51 YO Male with HTN, OA, Schizophrenia, Bipolar Disorder admitted to [facility] for psychiatric stabilization. Consult placed by Dr. Li for medical management. Patient seen and evaluated in the patient room. Patient resting comfortably. No reported nursing events. Patient remains at baseline level of cognition and function. Objective - Constitutional Vitals: Vital Signs - 12hr 11/05/21 11/05/21 04:00 04:14 Temperature 99.9 F H Respiratory 18 Rate General appearance: Present: no acute distress, well-nourished - EENT Eyes: PERRL, EOM intact ENT: hearing intact, clear oral mucosa Ears: bilateral: normal - Neck Neck: supple, normal ROM - Respiratory Respiratory effort: normal Respiratory: bilateral: CTA - Breasts Breasts: normal - Cardiovascular Heart rate: 78 Rhythm: regular Heart Sounds: Present: S1 & S2. Absent: gallop, rub Extremities: pulses intact, No edema, normal color, Full ROM - Gastrointestinal General gastrointestinal: Present: soft, non-tender, non-distended, normal bowel sounds - Genitourinary Male genitourinary: normal - Integumentary Integumentary: clear, warm, dry - Musculoskeletal Musculoskeletal: 1, strength equal bilaterally - Neurologic Neurologic: moves all extremities - Psychiatric Psychiatric: memory intact, appropriate mood/affect, intact judgment & insight - Labs CBC & Chem 7: 10/31/21 07:26 10/31/21 07:26
--- NOTE | 2021-11-05 09:39 | Progress Note ---
Subjective Date of service: 11/05/21 Principal diagnosis: Bipolar disorder, schizophrenia Subjective Comment: 11/05:The patient was seen today. He states he is not doing well today. He reports mood as good and depression is better. He denies any current suicidal/homicidal ideation and denies hallucinations. 11/04:The patient was seen today. He states he is doing better, reports depression as 4/10. He denies any current suicidal/homicidal ideation and denies hallucinations. 11/03:The patient was seen today. He states he is doing well. He reports depression as 5/10. He denies any current suicidal/homicidal ideation and denies hallucinations. Start Haldol 5mg po BID, decrease Zyprexa to 5mg po QHS- Plan to Start Haldol DEC [place] 11/02: The patient was seen today. He states he is ok. He reports depression as 2/10. He denies any current suicidal/homicidal ideation and denies hallucinations. No changes made today. 11/01: The patient was seen today.He reports doing well. The patient presents with appropriate affect, he denies depression. He denies any current suicidal/homicidal ideation and denies hallucinations. No changes made today. REVIEW OF SYSTEMS Constitutional: Negative for weight loss ENT: Negative for stridor Respiratory: Negative for cough or hemoptysis All other systems reviewed and are negative MENTAL STATUS EXAMINATION General Appearance and Behavior: Age appropriate, good hygiene, wearing appropriate clothes, fair eye contact, calm, cooperative and polite Cooperation: Cooperative Psychomotor Behavior: Psychomotor normal Mood: Good Affect and affective range: congruent with stated mood Thought Process: Goal directed Thought Content: Reality oriented Speech: normal tone and pace Suicidal Ideation: Denies Homicidal Ideation: Denies Hallucinations: Denies Delusions: None elicited Impulse Control: Limited Insight and Judgment: Limited insight and judgment Memory: Limited Attention: attentive Orientation: Alert, oriented Assessment and Plan Bipolar Disorder Schizophrenia Treatment Plan Patient admitted for inpatient psychiatric evaluation, medication adjustment and close monitoring The patient's behavior, mood, sleep and appetite will be closely monitored. Patient enrolled in individual and group therapeutic sessions and encouraged to attend. Patient provided with a safe and structured environment. Patient's physical health needs will be addressed by the Hospitalist. Hospitalist Consulted Labs including CBC, CMP, Lipid profile and Hemoglobin A1C levels ordered for baseline reference Social Assessment will be completed and the Software Development Engineer will work with patient and family to ensure a suitable and safe disposition Medication adjustment will be made as clinically indicated Continue home meds Usual Wellness [employer]/Preservation: - Start Trazodone 50 mg po QHS & 50 mg po QHS PRN between 10 PM & 2 AM for inso mnia - Start Melatonin 5 mg po QHS to promote circadian rhythm The patient agreed on the treatment plan, understood the risk, benefit, alternative treatment, potential consequence of no treatment, and gave informed consent. Estimated days: 2 Post hospital care: primary care provider, psychiatric provider Case staffed with Dr. Cruz Legal Status: Voluntary Reaction to Hospitalization: Accepting Medications and Allergies Legal Status: Voluntary Medications and Allergies Medications and Allergies Allergies Allergy/AdvReac Type Severity Reaction Status Date / Time Penicillins Allergy Unknown Verified 10/30/21 13:59 Home Medications Medication Instructions Recorded Confirmed Last Taken Type Gabapentin 100 mg PO TID 10/31/21 10/31/21 Unknown History Mirtazapine [Remeron] 45 mg PO HS 10/31/21 10/31/21 Unknown History OLANZapine [Zyprexa] 20 mg PO HS 10/31/21 10/31/21 Unknown History Pantoprazole [Protonix TAB] 40 mg PO DAILY 10/31/21 10/31/21 Unknown History busPIRone [Buspar] 10 mg PO TID 10/31/21 10/31/21 Unknown History hydrOXYzine PAMOATE [Vistaril] 25 mg PO BID PRN 10/31/21 10/31/21 Unknown History hydroCHLOROthiazide [HCTZ] 12.5 mg PO DAILY 10/31/21 10/31/21 Unknown History lamoTRIgine [Lamictal] 50 mg PO DAILY 10/31/21 10/31/21 Unknown History Active Meds: Active Medications Acetaminophen (Acetaminophen 325 Mg Tab) 650 mg PO Q6H PRN PRN Reason: Pain, Mild (1-3) Last Admin: 11/05/21 04:14 Dose: 650 mg Buspirone HCl (Buspirone 10 Mg Tab) 10 mg PO TID [facility] Last Admin: 11/04/21 20:33 Dose: 10 mg Gabapentin (Gabapentin 100 Mg Cap) 100 mg PO TID [facility] Last Admin: 11/04/21 20:34 Dose: 100 mg Haloperidol (Haloperidol 5 Mg Tab) 5 mg PO BID [facility] Last Admin: 11/04/21 22:24 Dose: 5 mg Haloperidol Decanoate (Haloperidol Decanoate 100 Mg/1 Ml Inj) 50 mg IM ONCE ONE Stop: 11/05/21 11:01 Hydrochlorothiazide (Hydrochlorothiazide 12.5 Mg Cap) 12.5 mg PO DAILY [facility] Last Admin: 11/04/21 09:33 Dose: 12.5 mg Hydroxyzine Pamoate (Hydroxyzine Pamoate 25 Mg Cap) 25 mg PO BID PRN PRN Reason: Anxiety Last Admin: 11/03/21 10:54 Dose: 25 mg Lamotrigine (Lamotrigine 25 Mg Tab) 50 mg PO DAILY [facility] Last Admin: 11/04/21 09:32 Dose: 50 mg Mirtazapine (Mirtazapine 15 Mg Tab) 45 mg PO HS [facility] Last Admin: 11/04/21 22:24 Dose: 45 mg Pantoprazole Sodium (Pantoprazole 40 Mg Tab) 40 mg PO DAILY [facility] Last Admin: 11/04/21 09:32 Dose: 40 mg Results - Results Labs/Vitals: Laboratory Last Values WBC 5.3 K/mm3 (4.5-11.0) 10/31/21 07:26 RBC 4.66 M/mm3 (3.65-5.03) 10/31/21 07:26 Hgb 11.2 gm/dl (11.8-15.2) L 10/31/21 07:26 Hct 35.2 % (35.5-45.6) L 10/31/21 07:26 MCV 76 fl (84-94) L 10/31/21 07:26 MCH 24 pg (28-32) L 10/31/21 07:26 MCHC 32 % (32-34) 10/31/21 07:26 RDW 18.0 % (13.2-15.2) H 10/31/21 07:26 Plt Count 212 K/mm3 (140-440) 10/31/21 07:26 Lymph % (Auto) 27.6 % (13.4-35.0) 10/31/21 07:26 [place] % (Auto) 7.2 % (0.0-7.3) 10/31/21 07:26 Eos % (Auto) 2.9 % (0.0-4.3) 10/31/21 07:26 Baso % (Auto) 0.7 % (0.0-1.8) 10/31/21 07:26 Lymph # (Auto) 1.5 K/mm3 (1.2-5.4) 10/31/21 07:26 [place] # (Auto) 0.4 K/mm3 (0.0-0.8) 10/31/21 07:26 Eos # (Auto) 0.2 K/mm3 (0.0-0.4) 10/31/21 07:26 Baso # (Auto) 0.0 K/mm3 (0.0-0.1) 10/31/21 07:26 Seg Neutrophils % 61.6 % (40.0-70.0) 10/31/21 07:26 Seg Neutrophils # 3.2 K/mm3 (1.8-7.7) 10/31/21 07:26 Sodium 139 mmol/L (137-145) 10/31/21 07:26 Potassium 4.1 mmol/L (3.6-5.0) 10/31/21 07:26 Chloride 103.9 mmol/L (98-107) 10/31/21 07:26 Carbon Dioxide 26 mmol/L (22-30) 10/31/21 07:26 Anion Gap 13 mmol/L 10/31/21 07:26 BUN 9 mg/dL (9-20) 10/31/21 07:26 Creatinine 0.8 mg/dL (0.8-1.3) 10/31/21 07:26 Estimated GFR > 60 ml/min 10/31/21 07:26 BUN/Creatinine Ratio 11 % 10/31/21 07:26 Glucose 91 mg/dL (75-100) 10/31/21 07:26 Hemoglobin A1c 6.4 % (4-6) H 10/31/21 07:26 Calcium 8.9 mg/dL (8.4-10.2) 10/31/21 07:26 Total Bilirubin 0.40 mg/dL (0.1-1.2) 10/31/21 07:26 AST 36 units/L (5-40) 10/31/21 07:26 ALT 20 units/L (7-56) 10/31/21 07:26 Alkaline Phosphatase 93 units/L (35-129) 10/31/21 07:26 Total Protein 6.8 g/dL (6.3-8.2) 10/31/21 07:26 Albumin 3.6 g/dL (3.9-5) L 10/31/21 07:26 Albumin/Globulin Ratio 1.1 % 10/31/21 07:26 Triglycerides 100 mg/dL (2-149) 10/31/21 07:26 Cholesterol 131 mg/dL (50-199) 10/31/21 07:26 LDL Cholesterol Direct 63 mg/dL (50-130) 10/31/21 07:26 HDL Cholesterol 51 mg/dL (40-59) 10/31/21 07:26 Cholesterol/HDL Ratio 2.56 % 10/31/21 07:26 TSH 1.510 mlU/mL (0.270-4.200) 10/31/21 07:26 Last Vital Signs Temp 99.9 F H 11/05/21 04:00 Pulse 127 H 11/04/21 19:47 Resp 18 11/05/21 04:14 BP 94/63 11/04/21 19:47 Pulse Ox 96 11/04/21 19:47
[2021-11-05] MEDS: PANTOPRAZOLE 40 MG TAB PO SCH (10:26)
[2021-11-05] MEDS: busPIRone 10 MG TAB PO SCH ×3 (10:26→21:22)
[2021-11-05] MEDS: GABAPENTIN 100 MG CAP PO SCH ×3 (10:26→21:22)
[2021-11-05] MEDS: lamoTRIgine 25 MG TAB PO SCH (10:26)
[2021-11-05] MEDS: hydroCHLOROthiazide 12.5 MG CAP PO SCH (10:27)
[2021-11-05] MEDS: HALOPERIDOL 5 MG TAB PO SCH ×2 (10:27→21:22)
[2021-11-05] MEDS ORDERED: HALOPERIDOL DECANOATE 100 MG/1 ML INJ IM ONE (11:00)
--- NOTE | 2021-11-05 17:03 | Progress Note ---
Assessment and Plan Assessment and plan: 11/05: Fever reported yesterday none today. We will do a chest x-ray. Will mon itor closely I am not sure if this was an error but if repeats patient will need a full sepsis work-up. (1) Hypertension Current Visit: Yes Status: Acute Qualifiers: Hypertension type: primary hypertension Qualified Code(s): I10 - Essential (primary) hypertension Plan to address problem: Monitor blood pressure every shift, continue medical management. (2) Osteoarthritis Current Visit: Yes Status: Acute Plan to address problem: Pain control as clinically indicated, supportive care. (3) Schizophrenia Current Visit: Yes Status: Acute Qualifiers: Schizophrenia type: unspecified Qualified Code(s): F20.9 - Schizophrenia, unspecified Plan to address problem: Continue medical management, supportive care, behavior change counseling, cognitive behavioral therapy. (4) Bipolar disorder Current Visit: Yes Status: Acute Qualifiers: Current episode severity: unspecified Plan to address problem: Continue medical management, supportive care. (5) Advance care planning Current Visit: Yes Status: Acute Plan to address problem: Disease education conducted, care plan discussed, diagnoses discussed, prognosis discussed, patient is full code. Patient knowledges understanding and agreement with care plan, +30 minutes. History Interval history: 51 YO Male with HTN, OA, Schizophrenia, Bipolar Disorder admitted to [facility] psych [facility] for psychiatric stabilization. Consult placed by Dr. Li for medical management. Patient seen and evaluated in the patient room. Patient resting comfortably. No reported nursing events. Patient remains at baseline level of cognition and function. Patient yesterday was noted to have a low-grade fever none has been reported today. T-max appeared to be 102.6. I am not sure if this was an erroneous read. We will monitor closely Hospitalist Physical - Physical exam Narrative exam: VITAL SIGNS: Reviewed. GENERAL: The patient appears normally developed, Vital signs as documented. HEAD: No signs of head trauma. EYES: Pupils are equal. Extraocular motions intact. EARS: Hearing grossly intact. MOUTH: Oropharynx is normal. NECK: No adenopathy, no JVD. CHEST: Chest with clear breath sounds bilaterally. No wheezes, rales, or rhonchi. CARDIAC: Regular rate and rhythm. S1 and S2, without murmurs, gallops, or rubs. VASCULAR: No Edema. Peripheral pulses normal and equal in all extremities. ABDOMEN: Soft, non tender and non distended. No rebound or guarding, and no masses palpated. Bowel Sounds normal. MUSCULOSKELETAL: Good range of motion of all major joints. Extremities without clubbing, cyanosis or edema. NEUROLOGIC EXAM: Alert and oriented x 3 No focal sensory or strength deficits. Speech normal. Follows commands. PSYCHIATRIC: Mood normal. SKIN: detail exam as documented in skin assessment - Constitutional Vitals: Temp Pulse Resp BP Pulse Ox 98.4 F 107 H 18 108/65 96 11/05/21 08:27 11/05/21 08:27 11/05/21 08:27 11/05/21 08:27 11/05/21 08:27 General appearance: Present: no acute distress, well-nourished Results - Labs CBC & Chem 7: 10/31/21 07:26 10/31/21 07:26 Labs: Laboratory Last Values WBC 5.3 K/mm3 (4.5-11.0) 10/31/21 07:26 RBC 4.66 M/mm3 (3.65-5.03) 10/31/21 07:26 Hgb 11.2 gm/dl (11.8-15.2) L 10/31/21 07:26 Hct 35.2 % (35.5-45.6) L 10/31/21 07:26 MCV 76 fl (84-94) L 10/31/21 07:26 MCH 24 pg (28-32) L 10/31/21 07:26 MCHC 32 % (32-34) 10/31/21 07:26 RDW 18.0 % (13.2-15.2) H 10/31/21 07:26 Plt Count 212 K/mm3 (140-440) 10/31/21 07:26 Lymph % (Auto) 27.6 % (13.4-35.0) 10/31/21 07:26 [place] % (Auto) 7.2 % (0.0-7.3) 10/31/21 07:26 Eos % (Auto) 2.9 % (0.0-4.3) 10/31/21 07:26 Baso % (Auto) 0.7 % (0.0-1.8) 10/31/21 07:26 Lymph # (Auto) 1.5 K/mm3 (1.2-5.4) 10/31/21 07:26 [place] # (Auto) 0.4 K/mm3 (0.0-0.8) 10/31/21 07:26 Eos # (Auto) 0.2 K/mm3 (0.0-0.4) 10/31/21 07:26 Baso # (Auto) 0.0 K/mm3 (0.0-0.1) 10/31/21 07:26 Seg Neutrophils % 61.6 % (40.0-70.0) 10/31/21 07:26 Seg Neutrophils # 3.2 K/mm3 (1.8-7.7) 10/31/21 07:26 Sodium 139 mmol/L (137-145) 10/31/21 07:26 Potassium 4.1 mmol/L (3.6-5.0) 10/31/21 07:26 Chloride 103.9 mmol/L (98-107) 10/31/21 07:26 Carbon Dioxide 26 mmol/L (22-30) 10/31/21 07:26 Anion Gap 13 mmol/L 10/31/21 07:26 BUN 9 mg/dL (9-20) 10/31/21 07:26 Creatinine 0.8 mg/dL (0.8-1.3) 10/31/21 07:26 Estimated GFR > 60 ml/min 10/31/21 07:26 BUN/Creatinine Ratio 11 % 10/31/21 07:26 Glucose 91 mg/dL (75-100) 10/31/21 07:26 Hemoglobin A1c 6.4 % (4-6) H 10/31/21 07:26 Calcium 8.9 mg/dL (8.4-10.2) 10/31/21 07:26 Total Bilirubin 0.40 mg/dL (0.1-1.2) 10/31/21 07:26 AST 36 units/L (5-40) 10/31/21 07:26 ALT 20 units/L (7-56) 10/31/21 07:26 Alkaline Phosphatase 93 units/L (35-129) 10/31/21 07:26 Total Protein 6.8 g/dL (6.3-8.2) 10/31/21 07:26 Albumin 3.6 g/dL (3.9-5) L 05/14/22 07:26 Albumin/Globulin Ratio 1.1 % 10/31/21 07:26 Triglycerides 100 mg/dL (2-149) 10/31/21 07:26 Cholesterol 131 mg/dL (50-199) 10/31/21 07:26 LDL Cholesterol Direct 63 mg/dL (50-130) 10/31/21 07:26 HDL Cholesterol 51 mg/dL (40-59) 10/31/21 07:26 Cholesterol/HDL Ratio 2.56 % 10/31/21 07:26 TSH 1.510 mlU/mL (0.270-4.200) 10/31/21 07:26 [place]/IV: Voiding Method Toilet Active Medications - Current Medications Current Medications: Generic Name Dose Route Start Last Admin Trade Name Freq PRN Reason Stop Dose Admin Acetaminophen 650 mg 10/31/21 16:26 11/05/21 10:47 Acetaminophen 325 Mg Tab PO 650 mg Q6H PRN Administration Pain, Mild (1-3) Buspirone HCl 10 mg 10/31/21 14:00 11/05/21 13:17 Buspirone 10 Mg Tab PO 10 mg TID [place] Administration Gabapentin 100 mg 10/31/21 09:00 11/05/21 13:17 Gabapentin 100 Mg Cap PO 100 mg TID [place] Administration Haloperidol 5 mg 11/03/21 10:00 11/05/21 10:27 Haloperidol 5 Mg Tab PO 5 mg BID [place] Administration Hydrochlorothiazide 12.5 mg 10/31/21 10:00 11/05/21 10:27 Hydrochlorothiazide 12.5 Mg Cap PO Not Given DAILY [place] Hydroxyzine Pamoate 25 mg 10/31/21 08:26 11/03/21 10:54 Hydroxyzine Pamoate 25 Mg Cap PO 25 mg BID PRN Administration Anxiety Lamotrigine 50 mg 10/31/21 10:00 11/05/21 10:26 Lamotrigine 25 Mg Tab PO 50 mg DAILY [place] Administration Mirtazapine 45 mg 10/31/21 22:00 11/04/21 22:24 Mirtazapine 15 Mg Tab PO 45 mg HS [place] Administration Pantoprazole Sodium 40 mg 10/31/21 10:00 11/05/21 10:26 Pantoprazole 40 Mg Tab PO 40 mg DAILY [place] Administration
--- NOTE | 2021-11-05 18:07 | XRay Report ---
CHEST 1 VIEW INDICATION: fever. COMPARISON: None FINDINGS: SUPPORT DEVICES: None. HEART: Within normal limits. LUNGS/PLEURA: No acute air space or interstitial disease. ADDITIONAL FINDINGS: None. IMPRESSION: 1. No acute findings. Signer Name: Salvatore Smith MD Signed: 11/05/2021 6:02 PM Workstation Name: [id number]
[2021-11-05] MEDS: MIRTAZAPINE 15 MG TAB PO SCH (21:23)
[2021-11-06 09:26] VITALS: BP 99/68
[2021-11-06] MEDS: lamoTRIgine 25 MG TAB PO SCH (10:07)
[2021-11-06] MEDS: PANTOPRAZOLE 40 MG TAB PO SCH (10:07)
[2021-11-06] MEDS: HALOPERIDOL 5 MG TAB PO SCH (10:07)
[2021-11-06] MEDS: busPIRone 10 MG TAB PO SCH (10:07)
[2021-11-06] MEDS: hydroCHLOROthiazide 12.5 MG CAP PO SCH (10:07)
[2021-11-06] MEDS: GABAPENTIN 100 MG CAP PO SCH (10:07)
[2021-11-06 10:15] LABS: BUN/Creatinine Ratio 21; Blood Urea Nitrogen 23 mg/dL (9-20); Calcium 8.9 mg/dL (8.4-10.2); Hemolysis Index 3
--- NOTE | 2021-11-06 10:23 | Discharge Summary ---
Providers - Providers Date of Admission: 10/30/21 22:29 Date of discharge: 11/06/21 Attending physician: JESSE RAZA MD 10/30/21 22:21 Consult to Physician [CONS] Routine Comment: Consulting Provider: ELMER DIETRICH Physician Instructions: Reason For Exam: management of medical problem Primary care physician: BIOLOGY INSTRUCTOR Hospitalization Reason for admission: agitation Admitting Diagnosis: F20.9 - SCHIZOPHRENIA, UNSPECIFIED Condition: Stable Hospital course: The patient was provided inpatient psychiatric treatment with safe and supportive environment, group/individual therapy, psychiatric medication, medication adjustment, adverse effect monitor, medical evaluation, medical treatment, social service assessment, social support meeting, placement assessment and psycho-education. The patients mood, cognition, behavior, motivation, compliance to treatment and appreciation on family/social support are improved and stabilized. At the time of discharge, the patient had no suicidal ideas, no homicidal ideas, no aggressive thoughts, no endangering behavior and no debilitating adverse effects. The patient agreed on the treatment plan, understood the risk, benefit, alternative treatment, potential consequence of no treatment, and gave informed consent. The patient was seen today. He says he feels good today. He denies SI/HI and hallucinations of any kind. 11/05:The patient was seen today. He states he is not doing well today. He reports mood as good and depression is better. He denies any current suicidal/homicidal ideation and denies hallucinations. 11/04:The patient was seen today. He states he is doing better, reports depression as 4/10. He denies any current suicidal/homicidal ideation and denies hallucinations. 11/03:The patient was seen today. He states he is doing well. He reports depression as 5/10. He denies any current suicidal/homicidal ideation and denies hallucinations. Start Haldol 5mg po BID, decrease Zyprexa to 5mg po QHS- Plan to Start Haldol DEC 11/02: The patient was seen today. He states he is ok. He reports depression as 2/10. He denies any current suicidal/homicidal ideation and denies hallucinations. No changes made today. 11/01: The patient was seen today.He reports doing well. The patient presents with appropriate affect, he denies depression. He denies any current suicidal/homicidal ideation and denies hallucinations. No changes made today. Disposition: 01 HOME / SELF CARE / HOMELESS Time spent for discharge: 35 Allergies/Adverse Reactions: Allergies Penicillins Allergy (Verified 10/30/21 13:59) Unknown Vital Signs: Last Vital Signs Temp 98.8 F 11/06/21 08:27 Pulse 107 H 11/06/21 08:27 Resp 18 11/06/21 08:27 BP 99/68 11/06/21 08:27 Pulse Ox 95 11/06/21 08:27 Last Lab: Laboratory Last Values WBC 5.3 K/mm3 (4.5-11.0) 10/31/21 07:26 RBC 4.66 M/mm3 (3.65-5.03) 10/31/21 07:26 Hgb 11.2 gm/dl (11.8-15.2) L 10/31/21 07:26 Hct 35.2 % (35.5-45.6) L 10/31/21 07:26 MCV 76 fl (84-94) L 10/31/21 07:26 MCH 24 pg (28-32) L 10/31/21 07:26 MCHC 32 % (32-34) 10/31/21 07:26 RDW 18.0 % (13.2-15.2) H 10/31/21 07:26 Plt Count 212 K/mm3 (140-440) 10/31/21 07:26 Lymph % (Auto) 27.6 % (13.4-35.0) 10/31/21 07:26 [place] % (Auto) 7.2 % (0.0-7.3) 10/31/21 07:26 Eos % (Auto) 2.9 % (0.0-4.3) 10/31/21 07:26 Baso % (Auto) 0.7 % (0.0-1.8) 10/31/21 07:26 Lymph # (Auto) 1.5 K/mm3 (1.2-5.4) 10/31/21 07:26 [place] # (Auto) 0.4 K/mm3 (0.0-0.8) 10/31/21 07:26 Eos # (Auto) 0.2 K/mm3 (0.0-0.4) 10/31/21 07:26 Baso # (Auto) 0.0 K/mm3 (0.0-0.1) 10/31/21 07:26 Seg Neutrophils % 61.6 % (40.0-70.0) 10/31/21 07:26 Seg Neutrophils # 3.2 K/mm3 (1.8-7.7) 10/31/21 07:26 Sodium 134 mmol/L (137-145) L 11/06/21 09:08 Potassium 3.9 mmol/L (3.6-5.0) 11/06/21 09:08 Chloride 100.7 mmol/L (98-107) 11/06/21 09:08 Carbon Dioxide 23 mmol/L (22-30) 11/06/21 09:08 Anion Gap 14 mmol/L 11/06/21 09:08 BUN 23 mg/dL (9-20) H 11/06/21 09:08 Creatinine 1.1 mg/dL (0.8-1.3) 11/06/21 09:08 Estimated GFR > 60 ml/min 11/06/21 09:08 BUN/Creatinine Ratio 21 % 11/06/21 09:08 Glucose 157 mg/dL (75-100) H 11/06/21 09:08 Hemoglobin A1c 6.4 % (4-6) H 10/31/21 07:26 Calcium 8.9 mg/dL (8.4-10.2) 11/06/21 09:08 Total Bilirubin 0.40 mg/dL (0.1-1.2) 10/31/21 07:26 AST 36 units/L (5-40) 10/31/21 07:26 ALT 20 units/L (7-56) 10/31/21 07:26 Alkaline Phosphatase 93 units/L (35-129) 10/31/21 07:26 Total Protein 6.8 g/dL (6.3-8.2) 10/31/21 07:26 Albumin 3.6 g/dL (3.9-5) L 10/31/21 07:26 Albumin/Globulin Ratio 1.1 % 10/31/21 07:26 Triglycerides 100 mg/dL (2-149) 10/31/21 07:26 Cholesterol 131 mg/dL (50-199) 10/31/21 07:26 LDL Cholesterol Direct 63 mg/dL (50-130) 10/31/21 07:26 HDL Cholesterol 51 mg/dL (40-59) 10/31/21 07:26 Cholesterol/HDL Ratio 2.56 % 10/31/21 07:26 TSH 1.510 mlU/mL (0.270-4.200) 10/31/21 07:26 Core Measure Documentation - Palliative Care Palliative Care/ Comfort Measures: Not Applicable - Core Measures Any of the following diagnoses?: none Exam - Constitutional Vitals: Temp Pulse Resp BP Pulse Ox 98.8 F 107 H 18 99/68 95 11/06/21 08:27 11/06/21 08:27 11/06/21 08:27 11/06/21 08:27 11/06/21 08:27 General appearance: Present: no acute distress - EENT Eyes: Present: PERRL, EOM intact ENT: hearing intact, clear oral mucosa - Neck Neck: Present: supple, normal ROM - Respiratory Respiratory effort: normal Plan Activity: advance as tolerated Weight Bearing Status: Weight Bear as Tolerated Care Plan Goals: Maintain good and stable mental health Plan of Treatment: The patient should be compliant with medications, not to use drugs and not to drink alcohol.The patient understands that if suicidal ideas, homicidal ideas, or any endangering thoughts/behavior arise, they should immediately seek for emergent assistance including but not limited to crisis hot line and emergency room. Follow up with outpatient Psychiatrist and PCP within 7 - 14 days of discharge. Assessment: Schizophrenia Follow up with: PRIMARY CARE, [Primary Care Provider] - 7 Days Prescriptions: haloperidoL [Haldol] 5 mg PO BID #60 tablet
[2021-11-06 10:27] LABS: Hematocrit 37.2 % (35.5-45.6); Hemoglobin 11.7 gm/dl (11.8-15.2); Mean Corpuscular HGB Conc 32 % (32-34); Mean Corpuscular Volume 76 fl (84-94); Platelet Count 146 K/mm3 (140-440); Red Blood Count 4.91 M/mm3 (3.65-5.03); Red Cell Distribution Width 17.5 % (13.2-15.2)
== END 2021-11-06 10:57 | disposition home or self-care (01) | DRG 885 ==
LOC: UNDOADMIN 12:49 → 3A 12:49 → 5A 22:29
PROVIDERS: ADMIT Psychiatry & Neurology Psychiatry; ATTEND Psychiatry & Neurology Psychiatry
DX: F20.9 Schizophrenia, unspecified (principal); M19.90 Unspecified osteoarthritis, unspecified site; I10 Essential (primary) hypertension; Z82.49 Family history of ischemic heart disease and other diseases of the circulatory system; Z88.0 Allergy status to penicillin; F31.9 Bipolar disorder, unspecified
CPT/HCPCS: 36415; 71045; 80048; 80053; 80061; 83036; 84443; 85025; 85027; G0378; J1631